=== PATIENT | female | born 1980 | race Caucasian/White ===

== ENCOUNTER 2019-12-17 11:16 | Emergency (ER) | payer OTHER, SELFPAY ==
[2019-12-17 11:38] VITALS: BP 129/94; PULSE 90; RESP 16; TEMP 36.9; O2SAT 99
--- NOTE | 2019-12-17 12:17 | ED.BACK ---
HPI - Back Pain/Injury General Chief Complaint: Back Pain/Injury Stated Complaint: Back pain Time Seen by Provider: 12/17/19 12:03 Source: patient and RN notes reviewed Mode of arrival: ambulatory Limitations: no limitations History of Present Illness HPI Narrative: Patient presents today complaining of low back pain x2 weeks. Denies injury or trauma. Denies numbness or tingling in the extremities. Denies any loss of bowel or bladder control. She currently rates her pain 4/10 and has been taking Advil without relief. States she has had back spasms in the past and was treated with steroids and muscle relaxers. MD elicited complaint: back pain Related Data Allergies Allergy/AdvReac Type Severity Reaction Status Date / Time No Known Allergies Allergy Uncoded 03/18/19 12:55 Review of Systems Review of Systems: Narrative: CONSTITUTIONAL: Denies body aches, fever, chills, or sweats. EYES: Denies visual changes, redness, or discharge. ENT: Denies rhinorrhea, congestion, sore throat, or otalgia. CARDIOVASCULAR: Denies chest pain, palpitations, or edema. RESPIRATORY: Denies cough or dyspnea. GASTROINTESTINAL: Denies abdominal pain, nausea, vomiting, or diarrhea. GENITOURINARY: Denies dysuria or hematuria. SKIN: Denies rash, itching, or wounds. MUSCULOSKELETAL: Denies joint pain, or myalgia. + Low back pain NEUROLOGIC: Denies headache, numbness, tingling, or weakness. PSYCH: Denies depression or anxiety. PMFSH Comments At time of signature, I have reviewed and agree with nursing past medical, surgical, social and family history unless otherwise noted. Please see nursing chart for further information. There is no relevant family history pertinent to the presenting complaint Exam Narrative: Exam Narrative: GENERAL: Well-appearing, over-nourished, and in no acute distress. HEAD: Normocephalic, atraumatic. EYES: EOMI. No redness or drainage. Conjunctivae normal. ENT: Mucous membranes pink and moist. NECK: Normal AROM. CHEST: No respiratory distress. MUSCULOSKELETAL: No bony tenderness of the spine. No step off. Bilateral lower lumbar paraspinal muscle tenderness. No SI joint tenderness. Distal sensation intact. Saddle sensation intact. Capillary refill normal. Pedal pulse normal. Foot push and pulls normal and strong. EXTREMITIES: Normal range of motion. No edema. SKIN: Warm, dry, no rash. Capillary refill normal. Normal skin turgor. NEURO: No focal deficits. Alert and oriented x3. Gait steady. PSYCH: Normal affect. No signs of depression or anxiety. Course Vital Signs Vital signs: Vital Signs Temperature 98.4 F 12/17/19 11:38 Pulse Rate 90 12/17/19 11:38 Respiratory Rate 16 12/17/19 11:38 Blood Pressure 129/94 H 12/17/19 11:38 Pulse Oximetry 99 12/17/19 11:38 Temperature 98.4 F 12/17/19 11:38 Pulse Rate 90 12/17/19 11:38 Respiratory Rate 16 12/17/19 11:38 Blood Pressure 129/94 H 12/17/19 11:38 Pulse Oximetry 99 12/17/19 11:38 Reviewed. Pt has been instructed to follow up with her PCP regarding her elevated blood pressure today. MDM - Back Pain/Injury Differential Diagnosis Differential diagnosis: Likely lumbar radiculopathy, sciatica and strain of lumbar region Critical Care Time Critical Care Time Critical Care Time: No Discharge Plan Discharge Clinical Impression: Strain of lumbar region Qualifiers: Encounter type: initial encounter Qualified Code(s): S39.012A - Strain of muscle, fascia and tendon of lower back, initial encounter Patient Disposition: Home, Self-Care Condition: Stable Instructions: Acute Low Back Pain (ED) Additional Instructions: Please take the Flexeril as prescribed. Do not drive within 8 hours of taking the Flexeril as it can make you drowsy. Continue the Advil at home for pain. Follow-up with a PCP in 1 week if symptoms are not improving. Go to the ER immediately with numbness or tingling in the legs of genitals, or loss of
== END 2019-12-17 12:25 | disposition home or self-care (01) ==
PROVIDERS: Emergency Provider Nurse Practitioner
DX: S39.012A Strain of muscle, fascia and tendon of lower back, initial encounter (principal); X58.XXXA Exposure to other specified factors, initial encounter
CPT/HCPCS: 99213; G0463

== ENCOUNTER 2020-10-10 12:16 | Emergency (ER) | payer OTHER, SELFPAY ==
--- NOTE | ~2020-10-10 | XR_ITS ---
XR ankle LT min 3V 10/10/2020 12:43 Indication: Left ankle pain Procedure: 4 views left ankle Comparison: No prior studies for comparison. Findings: There is mild diffuse soft tissue swelling. There is a linear ossific density lateral to th e talus inferior to the fibula which may represent an age-indeterminate avulsion fracture. Ankle mort ise intact. There is a degenerative calcaneal enthesophyte at the insertion of the Achilles. Impression: 1: Probable age-indeterminate avulsion fracture just lateral to the talus. Correlate for point tender ness. Reviewed, dictated and finalized at location A. Impression: 1: Probable age-indeterminate avulsion fracture just lateral to the talus. Sonido elate for point tenderness.
[2020-10-10 12:27] VITALS: BP 110/76; PULSE 86; RESP 16; TEMP 36.8; O2SAT 98
--- NOTE | 2020-10-10 13:00 | ED.LOWEXIN ---
HPI - Extremity Injury (Lower) General Chief Complaint: Extremity Injury, Lower Stated Complaint: left ankle pain Time Seen by Provider: 10/10/20 12:53 Source: patient and RN notes reviewed Mode of arrival: wheelchair Limitations: no limitations History of Present Illness HPI Narrative: Patient presents today complaining of left ankle injury. She stepped in a pothole while at [employer] just prior to arrival, rolling her left ankle. She has not been ambulatory since the injury. Denies numbness or tingling. Currently rates her pain 8/10. She has not tried any [id number] interventions for pain prior to arrival. complaint: ankle injury Related Data Home Medications Medication Instructions Recorded Confirmed No Home Medications 10/10/20 10/10/20 Allergies Allergy/AdvReac Type Severity Reaction Status Date / Time No Known Allergies Allergy Other Uncoded 10/10/20 12:46 Review of Systems Review of Systems: Narrative: CONSTITUTIONAL: Denies body aches, fever, chills, or sweats. EYES: Denies visual changes, redness, or discharge. ENT: Denies rhinorrhea, congestion, sore throat, or otalgia. CARDIOVASCULAR: Denies chest pain, palpitations, or edema. RESPIRATORY: Denies cough or dyspnea. GASTROINTESTINAL: Denies abdominal pain, nausea, vomiting, or diarrhea. GENITOURINARY: Denies dysuria or hematuria. SKIN: Denies rash, itching, or wounds. MUSCULOSKELETAL: Denies back pain, or myalgia.+ Left ankle injury NEUROLOGIC: Denies headache, numbness, tingling, or weakness. PSYCH: Denies depression or anxiety. PMFSH Comments At time of signature, I have reviewed and agree with nursing past medical, surgical, social and family history unless otherwise noted. Please see nursing chart for further information. There is no relevant family history pertinent to the presenting complaint Exam Narrative: Exam Narrative: GENERAL: Well-appearing, well-nourished, and in no acute distress. HEAD: Normocephalic, atraumatic. EYES: EOMI. No redness or drainage. Conjunctivae normal. ENT: Mucous membranes pink and moist. NECK: Normal AROM. CHEST: No respiratory distress. EXTREMITIES: Left ankle: Moderate edema to the lateral ankle with tenderness and ecchymosis. No tenderness about the foot. No tenderness to the medial malleolus. No tenderness to the talus. Range of motion limited due to pain. Full range of motion of the toes. Distal sensation intact in all toes. Pedal pulse normal. Capillary refill normal. SKIN: Warm, dry, no rash. Capillary refill normal. Normal skin turgor. NEURO: No focal deficits. Alert and oriented x3. Gait steady. PSYCH: Normal affect. No signs of depression or anxiety. Course Vital Signs Vital signs: Vital Signs Temperature 98.2 F 10/10/20 12:27 Pulse Rate 86 10/10/20 12:27 Respiratory Rate 16 10/10/20 12:27 Blood Pressure 110/76 10/10/20 12:27 Pulse Oximetry 98 10/10/20 12:27 Temperature 98.2 F 10/10/20 12:27 Pulse Rate 86 10/10/20 12:27 Respiratory Rate 16 10/10/20 12:27 Blood Pressure 110/76 10/10/20 12:27 Pulse Oximetry 98 10/10/20 12:27 Reviewed MDM - Extremity Injury (Lower) Differential Diagnosis Differential diagnosis: Likely ankle sprain and strain, ankle fracture and other (Contusion) Imaging Data Radiologist's impression: ITS Impressions Ankle X-Ray 10/10/20 12:45 Impression: 1: Probable age-indeterminate avulsion fracture just lateral to the talus. Correlate for point tenderness. Critical Care Time Critical Care Time Critical Care Time: No Discharge Plan Discharge Clinical Impression: Left ankle sprain Qualifiers: Encounter type: initial encounter Involved ligament of ankle: unspecified ligament Qualified Code(s): S93.402A - Sprain of unspecified ligament of left ankle, initial encounter Patient Disposition: Home, Self-Care Condition: Stable Instructions: Ankle Sprain (DC) Additional Instructions:
== END 2020-10-10 13:12 | disposition home or self-care (01) ==
PROVIDERS: Emergency Provider Nurse Practitioner
DX: S93.402A Sprain of unspecified ligament of left ankle, initial encounter (principal); X50.9XXA Other and unspecified overexertion or strenuous movements or postures, initial encounter
CPT/HCPCS: 73610; 99213; G0463

== ENCOUNTER 2020-10-30 08:13 | Emergency (ER) | payer OTHER, SELFPAY ==
[2020-10-30 08:40] VITALS: BP 129/80; PULSE 76; RESP 20; TEMP 36.6; O2SAT 100
--- NOTE | 2020-10-30 09:18 | ED.BACK ---
HPI - Back Pain/Injury General Chief Complaint: Back Pain/Injury Stated Complaint: back pain Time Seen by Provider: 10/30/20 09:03 Source: patient and RN notes reviewed Mode of arrival: ambulatory Limitations: no limitations History of Present Illness HPI Narrative: Patient presents today complaining of pain to her right back that radiates to the right buttock x3 days. States her pain started hurting as she was picking up a little laundry from her trunk of her car. She does report some intermittent numbness if she has been sitting for too long in the right lateral buttock area. She currently rates her pain 4/10 and has been taking Advil with temporary relief. Pain increased with movement or lying on her right side. Pain decreases when she lays on her left side. Denies numbness or tingling in the extremities. Denies any loss of bowel or bladder control. MD elicited complaint: back pain Related Data Allergies Allergy/AdvReac Type Severity Reaction Status Date / Time No Known Allergies Allergy Other Uncoded 10/10/20 12:46 Review of Systems Review of Systems: Narrative: CONSTITUTIONAL: Denies body aches, fever, chills, or sweats. EYES: Denies visual changes, redness, or discharge. ENT: Denies rhinorrhea, congestion, sore throat, or otalgia. CARDIOVASCULAR: Denies chest pain, palpitations, or edema. RESPIRATORY: Denies cough or dyspnea. GASTROINTESTINAL: Denies abdominal pain, nausea, vomiting, or diarrhea. GENITOURINARY: Denies dysuria or hematuria. SKIN: Denies rash, itching, or wounds. MUSCULOSKELETAL: Denies joint pain, or myalgia. + Right back pain NEUROLOGIC: Denies headache, numbness, tingling, or weakness. PSYCH: Denies depression or anxiety. PMFSH Comments At time of signature, I have reviewed and agree with nursing past medical, surgical, social and family history unless otherwise noted. Please see nursing chart for further information. There is no relevant family history pertinent to the presenting complaint Exam Narrative: Exam Narrative: GENERAL: Well-appearing, well-nourished, and in no acute distress. HEAD: Normocephalic, atraumatic. EYES: EOMI. No redness or drainage. Conjunctivae normal. ENT: Mucous membranes pink and moist. NECK: Normal AROM. CHEST: No respiratory distress. MUSCULOSKELETAL: No bony tenderness of the thoracic or lumbar spine. Patient has right lumbar paraspinal muscle tenderness extends to the right buttock/SI joint. Patient has sensation throughout the right buttock. Distal sensation intact. Saddle sensation intact and capillary refill normal. Posterior tibial pulses normal. Foot push and pulls equal and strong. EXTREMITIES: Normal range of motion. No edema. SKIN: Warm, dry, no rash. Capillary refill normal. Normal skin turgor. NEURO: No focal deficits. Alert and oriented x3. Gait steady. PSYCH: Normal affect. No signs of depression or anxiety. Course Vital Signs Vital signs: Vital Signs Temperature 97.9 F 10/30/20 08:40 Pulse Rate 76 10/30/20 08:40 Respiratory Rate 20 10/30/20 08:40 Blood Pressure 129/80 10/30/20 08:40 Pulse Oximetry 100 10/30/20 08:40 Temperature 97.9 F 10/30/20 08:40 Pulse Rate 76 10/30/20 08:40 Respiratory Rate 20 10/30/20 08:40 Blood Pressure 129/80 10/30/20 08:40 Pulse Oximetry 100 10/30/20 08:40 Reviewed. Pt has been instructed to follow up with her PCP regarding her elevated blood pressure today. MDM - Back Pain/Injury Differential Diagnosis Differential diagnosis: Likely lumbar radiculopathy, sciatica, strain of lumbar region and thoracic back pain Critical Care Time Critical Care Time Critical Care Time: No Discharge Plan Discharge Clinical Impression: Strain of lumbar region Qualifiers: Encounter type: initial encounter Qualified Code(s): S39.012A - Strain of muscle, fascia and tendon of lower back, initial encounter Sciatica Qualifiers: Laterality: right Qualified Code(s): M54.31 - Sciatic
== END 2020-10-30 09:24 | disposition home or self-care (01) ==
PROVIDERS: Emergency Provider Nurse Practitioner
DX: S39.012A Strain of muscle, fascia and tendon of lower back, initial encounter (principal); X50.0XXA Overexertion from strenuous movement or load, initial encounter; M54.31 Sciatica, right side
CPT/HCPCS: 99213; G0463

== ENCOUNTER 2021-02-06 15:09 | Emergency (ER) | payer OTHER, SELFPAY ==
[2021-02-06 15:17] VITALS: BP 140/80; PULSE 88; RESP 16; TEMP 36.4; O2SAT 99
--- NOTE | 2021-02-06 15:32 | ED.LOWEXIN ---
HPI - Extremity Injury (Lower) General Chief Complaint: Extremity Injury, Lower Stated Complaint: Left Knee Pain Time Seen by Provider: 02/06/21 15:22 Source: patient and RN notes reviewed Mode of arrival: ambulatory Limitations: no limitations History of Present Illness HPI Narrative: 40-year-old female presents concern for left knee pain. Reports earlier today she tripped on the stairs and twisted her left knee. She denies little pain at rest, reports pain with weightbearing. Reports distal anterior pain. She denies intervention. She denies distal decreased sensation, range of motion. MD complaint: knee injury Related Data Allergies Allergy/AdvReac Type Severity Reaction Status Date / Time No Known Allergies Allergy Other Uncoded 10/10/20 12:46 Review of Systems Review of Systems: CONSTITUTIONAL: Denies malaise, chills, sweats, or fever. SKIN: Denies abrasions, lacerations, redness, warmth MUSCULOSKELETAL: Reports left knee pain, denies bruising, swelling NEUROLOGIC: Denies numbness, weakness All systems reviewed & are unremarkable except as noted in HPI and below PMFSH Comments At time of signature, agree with nursing past medical, surgical, social and family history. There is no relevant family history pertinent to the presenting complaint Exam Narrative: GENERAL: Well-appearing, well-nourished, and in no acute distress. HEAD: Normocephalic, atraumatic. EYES: PERRLA, conjunctivae clear NECK: Supple. CHEST: Speaks in full sentences. No respiratory distress. HEART: Regular rate and rhythm. Normal and equal peripheral pulses. EXTREMITIES: Left knee has normal strength and sensation, normal range of motion. No edema or ecchymosis. 5/5 strength with knee flexion and extension. Normal sensation with sensitivity to light touch and pain. No point tenderness. No open wounds, no skin tenting, no devitalized tissue or atrophy, no trophic changes, no obvious deformity, alignment normal, nearby joints and structures intact. Distal pulses palpable and equal bilaterally, skin warm, dry, pink. Capillary refill less than 3 seconds. Lever test negative SKIN: Warm, dry, no rash. NEURO: Alert and oriented x3. PSYCH: Normal mood and affect Course Course Emergency Course: Patient is aware of diagnosis, understands and agrees to treatment plan. Anticipatory guidance given. Patient agrees to follow-up as directed and is aware of reasons to seek care at the emergency department. Portions of this record may have been created with voice recognition software Vital Signs Vital signs: Vital Signs Temperature 97.5 F L 02/06/21 15:17 Pulse Rate 88 02/06/21 15:17 Respiratory Rate 16 02/06/21 15:17 Blood Pressure 140/80 02/06/21 15:17 Pulse Oximetry 99 02/06/21 15:17 Temperature 97.5 F L 02/06/21 15:17 Pulse Rate 88 02/06/21 15:17 Respiratory Rate 16 02/06/21 15:17 Blood Pressure 140/80 02/06/21 15:17 Pulse Oximetry 99 02/06/21 15:17 Reviewed. Patient has been instructed to follow up with her primary care provider within the next week regarding her elevated blood pressure today. MDM - Extremity Injury (Lower) MDM Narrative Medical decision making narrative: Patients injury and pain is consistent with musculoskeletal etiology. No signs of neurological or vascular compromise on exam. Compartments and tissues are soft without signs of compartment syndrome. Pain is felt appropriate for further evaluation on an outpatient basis. Critical Care Time Critical Care Time Critical Care Time: No Discharge Plan Discharge Clinical Impression: Knee sprain Qualifiers: Encounter type: initial encounter Involved ligament of knee: unspecified ligament Laterality: left Qualified Code(s): S83.92XA - Sprain of unspecified site of left knee, initial encounter Patient Disposition: Home, Self-Care Condition: Stable Instructions: Knee Sprain (ED) Additional Instructions: Avoid activities that cause pain until the p
== END 2021-02-06 15:38 | disposition home or self-care (01) ==
PROVIDERS: Emergency Provider Nurse Practitioner
DX: S83.92XA Sprain of unspecified site of left knee, initial encounter (principal); X50.9XXA Other and unspecified overexertion or strenuous movements or postures, initial encounter
CPT/HCPCS: 99213; G0463

== ENCOUNTER 2021-04-06 17:36 | Emergency (ER) | payer OTHER, SELFPAY ==
[2021-04-06 17:45] VITALS: BP 100/83; PULSE 94; RESP 18; TEMP 36.5
--- NOTE | 2021-04-06 19:11 | ED.URI ---
HPI - URI/Sore Throat General Chief Complaint: Upper Respiratory Infection Stated Complaint: sore throat Source: patient and RN notes reviewed Limitations: no limitations History of Present Illness HPI Narrative: The overweight unvaccinated patient, a non-smoker/nondrinker, presents with half week history is cough and sore throat. No fever, earache, sputum changes; no loss of taste or smell, CP, vomiting/diarrhea, S OB. Symptoms are mild, associated mild fogginess/hoarseness. Related Data Allergies Allergy/AdvReac Type Severity Reaction Status Date / Time No Known Allergies Allergy Other Uncoded 04/06/21 18:06 Review of Systems Review of Systems: General/Constitutional: No weight loss,fever Eyes: N0: Redness,discharge Ears/Nose/Throat: No: Epistaxis,ear discharge Respiratory: Denies: Hemoptysis Gastrointestinal: No Vomiting, Bleeding-rectal Skin: No Lumps, eruption Neurologic: No Focal Weakness,Sz Hematologic: Denies: Petechiae/Purpura Psychiatric: No: Suicida ideationl All Other Systems: Reviewed and Negative PMFSH Comments At time of signature, agree with nursing past medical, surgical, social and family history. There is no relevant family history pertinent to the presenting complaint Exam Narrative: General Appearance: Well appearing, Well nourished EYE: PERRLA, Conjunctiva clear Ears: Auditory canal normal, TM normal Nose: Rhinorrhea, Mucousal erythema Mouth/Throat: MM moist, Uvula midline, Pharyngeal erythema Neck: Supple, No adenopathy Respiratory: No respiratory distress, Breath sounds equal, Clear to auscultation Cardiovascular: RRR, No JVD Musculoskeletal: Non tender, Normal strength Skin: Warm, Dry Neurological: A&O x3, CN II-XII intact Psychiatric: Normal mood, Normal affect Course Vital Signs Vital signs: Vital Signs Temperature 97.7 F 04/06/21 17:45 Pulse Rate 94 04/06/21 17:45 Respiratory Rate 18 04/06/21 17:45 Blood Pressure 100/83 04/06/21 17:45 Temperature 97.7 F 04/06/21 17:45 Pulse Rate 94 04/06/21 17:45 Respiratory Rate 18 04/06/21 17:45 Blood Pressure 100/83 04/06/21 17:45 MDM - URI/Sore Throat Lab Data Labs: Lab Results 04/06/21 Range/Units 18:05 POC SARS CoV-2 Ag Negative (Negative) Discharge Plan Discharge Clinical Impression: Cough Patient Disposition: Home, Self-Care Condition: Stable Instructions: Antibiotic Form, Acute Bronchitis (ED) Prescriptions: New benzonatate 100 mg capsule 100 mg PO BID PRN (Reason: cough) Qty: 20 RF: 2 azithromycin 250 mg tablet See Rx Instructions .ROUTE .COMPLEX Qty: 6 RF: 0 codeine-guaifenesin 10-100 mg/5 mL liquid 7.5 ml PO Q6H PRN (Reason: cough) Qty: 118 RF: 0 Follow-up/Referrals: UNKNOWN,DOCTOR [Primary Care Provider] - Stand Alone Forms: Work/School Release IP
== END 2021-04-06 19:25 | disposition home or self-care (01) ==
PROVIDERS: Emergency Provider Emergency Medicine
DX: R05.9 Cough, unspecified (principal); Z20.822 Contact with and (suspected) exposure to COVID-19
CPT/HCPCS: 87426; 99213; C9803; G0463

== ENCOUNTER 2022-02-08 08:10 | Emergency (ER) | payer OTHER, SELFPAY ==
--- NOTE | ~2022-02-08 | XR_ITS ---
EXAMINATION: XR finger 4th LT min 2V DATE: 02/08/2022 09:29 INDICATION: Left hand fourth digit injury. TECHNIQUE: 3 views of left hand fourth digit were obtained. COMPARISON: None. FINDINGS: Bone alignment is normal. No fracture. Joint spaces are normal. IMPRESSION: 1. No fracture. Reviewed, dictated and finalized at location A. IMPRESSION: 1. No fracture.
[2022-02-08 08:15] VITALS: BP 140/81; PULSE 83; RESP 12; TEMP 36.2; O2SAT 99
--- NOTE | 2022-02-08 08:30 | ED.UPPEXIN ---
HPI - Extremity Injury (Upper) General Chief Complaint: Extremity Injury, Upper Stated Complaint: left 4th finger injury Time Seen by Provider: 02/08/22 08:31 Source: patient Mode of arrival: ambulatory Limitations: no limitations History of Present Illness HPI narrative: 41-year-old female presented for complaint of left ring finger pain after injury yesterday around 1430. She states she slammed her car door on the finger. Endorses swelling and bruising decreased range of motion. She took Advil for pain. She denies numbness or tingling. Related Data Allergies Allergy/AdvReac Type Severity Reaction Status Date / Time No Known Allergies Allergy Other Uncoded 02/08/22 08:23 Review of Systems Review of Systems: CONSTITUTIONAL: Denies body aches, fever, chills CARDIOVASCULAR: Denies chest pain, palpitations, or edema. RESPIRATORY: Denies cough or dyspnea. SKIN: Denies rash, itching, or wounds. MUSCULOSKELETAL: Reports left ring finger pain NEUROLOGIC: Denies headache, numbness, tingling, or weakness. All systems reviewed & are unremarkable except as noted in HPI and below PMFSH Comments At time of signature, I have reviewed and agree with nursing past medical, surgical, social and family history unless otherwise noted. Please see nursing chart for further information. There is no relevant family history pertinent to the presenting complaint Exam Narrative: GENERAL: Well-appearing CHEST: Speaks in full sentences. No respiratory distress. HEART: Regular rate and rhythm. Normal and equal peripheral pulses. EXTREMITIES: Left 4th digit with mild bruising and swelling to proximal phalanx, tender to palpation, decreased ROM at MCP and PIP due to pain/swelling; normal strength and sensation, No open wounds, no obvious deformity; pulse palpable and equal bilaterally, skin warm, dry, pink. Capillary refill less than 3 seconds. SKIN: Warm, dry, no rash. NEURO: Alert and oriented x3. Course Course Emergency Course: Patient is aware of diagnosis, understands and agrees to treatment plan. Anticipatory guidance given. Patient agrees to follow-up as directed and is aware of reasons to seek care at the emergency department. Portions of this record may have been created with voice recognition software Level of Care: Express Care Visit Vital Signs Vital signs: Vital Signs Temperature 97.1 F L 02/08/22 08:15 Pulse Rate 83 02/08/22 08:15 Respiratory Rate 12 02/08/22 08:15 Blood Pressure 140/81 02/08/22 08:15 Pulse Oximetry 99 02/08/22 08:15 Temperature 97.1 F L 02/08/22 08:15 Pulse Rate 83 02/08/22 08:15 Respiratory Rate 12 02/08/22 08:15 Blood Pressure 140/81 02/08/22 08:15 Pulse Oximetry 99 02/08/22 08:15 Reviewed Procedures Orthopedic Splinting/Casting left 4th digit: Upper Extremity Immobilizer: aluminum form splint MDM - Extremity Injury (Upper) MDM Narrative Medical decision making narrative: Pt is advised we cannot complete imaging at this facility and is requesting [facility]. Report given to Tequila Uribe NP. Pt is instructed to go directly to the facility. Splint applied prior to transfer. Differential Diagnosis Differential diagnosis: Likely finger sprain, dislocation of finger and other (finger fracture) Imaging Data Radiologist's impression: Patient: Natalia Urias : 1980 MR#: [id number] Age/Sex: 41 / F Acct:[id number] Loc: [facility]? ? ADM Date: 02/08/22Attending Dr: Ordering Physician: Melva Rodas APRN Date of Service: 02/08/22 Procedure(s): XR finger 4th LT min 2V Accession Number(s): [id number] cc: Melva Rodas APRN; UNKNOWN,DOCTOR~ EXAMINATION: XR finger 4th LT min 2V DATE: 02/08/2022 09:29 INDICATION: Left hand fourth digit injury. TECHNIQUE: 3 views of left hand fourth digit were obtained. COMPARISON: None. FINDINGS: Bone alignment is normal. No fracture. Joint spaces are normal. IMPRESSION: 1. N
== END 2022-02-08 09:58 | disposition home or self-care (01) ==
PROVIDERS: Emergency Provider Nurse Practitioner Family
DX: S60.042A Contusion of left ring finger without damage to nail, initial encounter (principal); X58.XXXA Exposure to other specified factors, initial encounter
CPT/HCPCS: 29130; 73140; 99213; G0463

== ENCOUNTER 2022-02-25 19:16 | Emergency (ER) | payer OTHER, SELFPAY ==
[2022-02-25 19:26] VITALS: BP 130/81; PULSE 79; RESP 20; TEMP 36.8; O2SAT 100
--- NOTE | 2022-02-25 19:55 | ED.GENADULT ---
HPI - General Adult General Chief complaint: Extremity Problem,Nontraumatic Stated complaint: Left Arm Pain Time Seen by Provider: 02/25/22 19:30 Source: patient, RN notes reviewed and old records reviewed Mode of arrival: ambulatory Limitations: no limitations History of Present Illness HPI narrative: 41 year old female accompanied by mother presents to express care with complaints of squeezing pain in her left arm for the past 1 and half hours denies any injury to her arm or neck She reports that pain starts at wrist area and goes up to her elbow occasionally goes up into upper arm then it resolves and occurs intermittently. 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 Patient denies any chest pain, shortness of breath or any feelings of numbness in left arm. MD complaint: left arm pain intermittently Onset (ago): hour(s) (1.5 hours ago) Severity scale (1-10): 3 Treatments prior to arrival: none Related Data Allergies Allergy/AdvReac Type Severity Reaction Status Date / Time No Known Allergies Allergy Other Uncoded 02/08/22 08:23 Review of Systems Review of Systems: CONSTITUTIONAL: Denies fever, chills, or sweats. EYES: Denies visual changes, redness, or discharge. ENT: Denies rhinorrhea, congestion, sore throat, or otalgia. CARDIOVASCULAR: Denies chest pain, palpitations, or edema. RESPIRATORY: Denies cough or dyspnea. GASTROINTESTINAL: Denies abdominal pain, nausea, vomiting, or diarrhea. GENITOURINARY: Denies dysuria or hematuria. SKIN: Denies rash or itching. MUSCULOSKELETAL: Denies back pain, reports intermittent left arm pain described as squeezing from wrist up her arm. NEUROLOGIC: Denies headache, numbness, or weakness. PSYCHIATRIC: Denies anxiety or depression. All systems reviewed & are unremarkable except as noted in HPI and below [facility] Past Medical History Medical History (Updated 03/01/22 @ 11:05 by Lyssa Estrada NP) Exercise-induced asthma Social History Social History (Updated 03/01/22 @ 11:06 by Lyssa Estrada NP) Smoking status: Never smoker Alcohol intake: unknown Substance use type: does not use Living arrangements: with family Gender identity (if verbalized by the patient): Female Comments At time of signature, agree with nursing past medical, surgical, social and family history. There is no relevant family history pertinent to the presenting complaint Exam Narrative: GENERAL: Well-appearing, well-nourished, obese and in no acute distress. HEAD: Normocephalic, atraumatic. EYES: PERRLA and EOMI. ENT: Nares clear, no rhinorrhea or epistaxis. Mucous membranes moist. TM's normal with good light reflex, throat pink with no lesions or swelling NECK: Supple.no lymphadenopathy CHEST: Clear to auscultation. No respiratory distress.SAO2 100% on room air HEART: Regular rate and rhythm. No murmur heard. Normal peripheral pulses. ABDOMEN: Soft, nontender, nondistended, normal active bowel sounds. EXTREMITIES: Normal range of motion. No edema. No redness or swelling of left arm, reports intermittent squeezing pain in left arm up to upper arm starting 1.5 hours ago with no injury, full ROM of arm and shoulder and neck, denies any tingling or numbness, strong pulses left arm, equal handgrip bilaterally. SKIN: Warm, dry, no rash. NEURO: No focal deficits. Alert and oriented x3. Course Course Level of Care: Express Care Visit Vital Signs Vital signs: Vital Signs Temperature 36.8 C 02/25/22 19:26 Pulse Rate 79 02/25/22 19:26 Respiratory Rate 20 02/25/22 19:26 Blood Pressure 130/81 02/25/22 19:26 Pulse Oximetry 100 02/25/22 19:26 Oxygen Delivery Room Air 02/25/22 19:26 Temperature 36.8 C 02/25/22 19:26 Pulse Rate 79 02/25/22 19:26 Respiratory Rate 20 02/25/22 19:26 Blood Pressure 130/81 02/25/22 19:26 Pulse Oximetry 100 02/25/22 19:26 Oxygen Delivery Room Air 02/25/22 19:26 Medical Deci
--- NOTE | 2022-02-25 20:10 | ED.GENADULT ---
HPI - General Adult General Chief complaint: Extremity Problem,Nontraumatic Stated complaint: Left Arm Pain Source: patient, RN notes reviewed and old records reviewed Mode of arrival: ambulatory Limitations: no limitations Related Data Allergies Allergy/AdvReac Type Severity Reaction Status Date / Time No Known Allergies Allergy Other Uncoded 02/08/22 08:23 Course Vital Signs Vital signs: Vital Signs Temperature 36.8 C 02/25/22 19:26 Pulse Rate 79 02/25/22 19:26 Respiratory Rate 20 02/25/22 19:26 Blood Pressure 130/81 02/25/22 19:26 Pulse Oximetry 100 02/25/22 19:26 Oxygen Delivery Room Air 02/25/22 19:26 Temperature 36.8 C 02/25/22 19:26 Pulse Rate 79 02/25/22 19:26 Respiratory Rate 20 02/25/22 19:26 Blood Pressure 130/81 02/25/22 19:26 Pulse Oximetry 100 02/25/22 19:26 Oxygen Delivery Room Air 02/25/22 19:26 Medical Decision Making Vital Signs Vital Signs: Vital Signs Temperature 36.8 C 02/25/22 19:26 Pulse Rate 79 02/25/22 19:26 Respiratory Rate 20 02/25/22 19:26 Blood Pressure 130/81 02/25/22 19:26 Pulse Oximetry 100 02/25/22 19:26 Oxygen Delivery Room Air 02/25/22 19:26 Temperature 36.8 C 02/25/22 19:26 Pulse Rate 79 02/25/22 19:26 Respiratory Rate 20 02/25/22 19:26 Blood Pressure 130/81 02/25/22 19:26 Pulse Oximetry 100 02/25/22 19:26 Oxygen Delivery Room Air 02/25/22 19:26 Discharge Plan Discharge Clinical Impression: Left arm pain Patient Disposition: Home, Self-Care Condition: Stable Instructions: Arm Pain (ED) Additional Instructions: Tylenol for lesser pain Ibuprofen regularly for the next 2-3 days for the inflammation Medrol Dosepak take as prescribed Follow-up with PCP if further problems or concerns Ice to the area 20-30 minutes 4-6 times a day Elevate above heart If your symptoms persist, change or worsen significantly before you can contact your personal physician then please, without delay, go to the emergency department for further evaluation. Follow-up with PCP in 7-10 days or sooner if needed Follow up with PCP soon in regards to your blood pressure which is elevated above threshold for referral. Blood pressure above 120/80 may indicate pre-hypertension. Blood pressure 130/81 Prescriptions: New methylprednisolone [Medrol (Fausto)] 4 mg tablets,dose pack 4 mg PO DAILY Qty: 21 0RF Rx Instructions: take per package instructions Follow-up/Referrals: PHYSICIAN,LEGAL ACTIVITY ADJUDICATOR [Primary Care Provider] - Time of Disposition: 20:11
== END 2022-02-25 20:18 | disposition home or self-care (01) ==
PROVIDERS: Emergency Provider Registered Nurse
DX: M79.602 Pain in left arm (principal)
CPT/HCPCS: 99213; G0463

== ENCOUNTER 2022-03-02 14:22 | Emergency (ER) | payer OTHER, SELFPAY ==
--- NOTE | ~2022-03-02 | XR_ITS ---
EXAMINATION: XR tibia fibula RT 2V INDICATION: Right leg pain TECHNIQUE: Two views of the right tibia and fibula are obtained. COMPARISON: None available FINDINGS: Bone alignment is normal. There is no fracture. There is mild anterior soft tissue swelling of the leg. IMPRESSION: 1. No acute osseous abnormality. Reviewed, dictated and finalized at location A.
[2022-03-02 14:31] VITALS: BP 149/74; PULSE 101; RESP 16; TEMP 36.4; O2SAT 99
--- NOTE | 2022-03-02 14:33 | ED.LOWEXIN ---
HPI - Extremity Injury (Lower) General Chief Complaint: Extremity Injury, Lower Stated Complaint: right knee pain Time Seen by Provider: 03/02/22 14:32 Source: patient Mode of arrival: ambulatory Limitations: no limitations History of Present Illness HPI Narrative: Ms. Urias is a 41-year-old female patient with complaints of right upper leg pain. She reports that she tripped over a root in the backyard and landed on the right leg. She has bruising to this area and she reports she is having pain with walking. Related Data Home Medications Medication Instructions Recorded Confirmed No Home Medications 03/02/22 03/02/22 Allergies Allergy/AdvReac Type Severity Reaction Status Date / Time No Known Allergies Allergy Other Uncoded 03/02/22 14:31 Review of Systems Review of Systems: Pertinent positives per HPI. Patient denies any fever, chills, rash, headache, visual changes, dizziness, cough, runny nose, sore throat, shortness of breath, chest pain, palpitations, nausea, vomiting, diarrhea, constipation, abdominal pain, or any urinary issues. [facility] Past Medical History Medical History (Updated 03/02/22 @ 14:40 by Luis Askew APRN) Exercise-induced asthma Social History Social History (Updated 03/01/22 @ 11:06 by Lyssa Estrada NP) Smoking status: Never smoker Alcohol intake: unknown Substance use type: does not use Gender identity (if verbalized by the patient): Female Comments At the time of my signature, I reviewed and agree with the nursing past medical, surgical, social, and family history. There is no relevant family history pertinent to the patient complaint. Exam Narrative: General: Well-developed, well nourished, in no apparent distress Head: Normocephalic, atraumatic. Cardio: Regular rate and rhythm, s1 and s2 normal, no murmur appreciated. Resp: Clear to auscultation bilaterally, no rhonchi, rales, wheezing or rubs. Musculoskeletal: No deformity, bruising and swelling noted to the anterior proximal right leg, tender to palpation over the bruised area,grossly normal range of motion, muscle strength strong and equal, peripheral pulse strong, no edema, no cyanosis, sitting in wheelchair Course Course Emergency Course: Portions of this record may have been created with voice recognition software. Level of Care: Express Care Visit Vital Signs Vital signs: Vital Signs Temperature 36.4 C L 03/02/22 14:31 Pulse Rate 101 H 03/02/22 14:31 Respiratory Rate 16 03/02/22 14:31 Blood Pressure 149/74 H 03/02/22 14:31 Pulse Oximetry 99 03/02/22 14:31 Oxygen Delivery Room Air 03/02/22 14:31 Temperature 36.4 C L 03/02/22 14:31 Pulse Rate 101 H 03/02/22 14:31 Respiratory Rate 16 03/02/22 14:31 Blood Pressure 149/74 H 03/02/22 14:31 Pulse Oximetry 99 03/02/22 14:31 Oxygen Delivery Room Air 03/02/22 14:31 Vital signs reviewed MDM - Extremity Injury (Lower) MDM Narrative Medical decision making narrative: At the time of visit patient is resting comfortably in the exam room. X-ray was performed and shows no fracture of the tib-fib. I suspect the patient has a tib-fib fusion of the right leg. Supportive measures were discussed with the patient and she voiced understanding of discharge instructions and agrees to treatment plan. Differential Diagnosis Differential diagnosis: Likely other (Tib-fib fracture, tib-fib contusion, soft tissue injury) Imaging Data Radiologist's impression: [facility] [address] [place] [address] XRay Report Signed Patient: Ntaalia Urias : 1980 MR#: [id number] Age/Sex: 41 / F Acct:[id number] Loc: [facility]? ? ADM Date: 03/02/22Attending Dr: Ordering Physician: Luis Askew APRN Date of Service: 03/02/22 Procedure(s): XR tibia fibula RT 2V Accession Number(s): [id number] cc: Luis Askew APRN; [facility]
[2022-03-02 14:37] VITALS: BP 149/74; PULSE 101; RESP 16; TEMP 36.4; O2SAT 99
== END 2022-03-02 15:03 | disposition home or self-care (01) ==
PROVIDERS: Emergency Provider Nurse Practitioner Family
DX: S80.11XA Contusion of right lower leg, initial encounter (principal); W01.0XXA Fall on same level from slipping, tripping and stumbling without subsequent striking against object, initial encounter
CPT/HCPCS: 73590; 99213; G0463

== ENCOUNTER 2022-04-18 20:24 | Emergency (ER) | payer OTHER, SELFPAY ==
[2022-04-18 20:24] VITALS: BP 137/90; PULSE 94; RESP 20; TEMP 36.8; O2SAT 98
--- NOTE | 2022-04-18 22:18 | ED.BACK ---
HPI - Back Pain/Injury General Chief Complaint: Back Pain/Injury Stated Complaint: back spasms Time Seen by Provider: 04/18/22 22:03 History of Present Illness HPI Narrative: This is a 41F with history of back spasm presenting to the ED complaining of left low back spasm and fall. She states she was seated on the toilet when she felt a spasm in the left low back, she attempted to stand but fell due to pain. She denies head injury or loss of consciousness. She states her pain is 5/10, sore and does not radiate. She denies loss of bowel/bladder control, or leg weakness. Related Data Allergies Allergy/AdvReac Type Severity Reaction Status Date / Time No Known Allergies Allergy Other Uncoded 03/02/22 14:31 Review of Systems Review of Systems: CONSTITUTIONAL: Denies fever, chills, or sweats. EYES: Denies visual changes, redness, or discharge. ENT: Denies rhinorrhea, congestion, sore throat, or otalgia. CARDIOVASCULAR: Denies chest pain, palpitations, or edema. RESPIRATORY: Denies cough or dyspnea. GASTROINTESTINAL: Denies abdominal pain, nausea, vomiting, or diarrhea. GENITOURINARY: Denies dysuria or hematuria. SKIN: Denies rash or itching. MUSCULOSKELETAL: Back pain denies joint pain, or myalgia. NEUROLOGIC: Denies headache, numbness, dizziness, or weakness. PSYCHIATRIC: Denies anxiety or depression. [facility] Past Medical History Medical History Exercise-induced asthma Social History Social History Smoking status: Never smoker Alcohol intake: unknown Substance use type: does not use Gender identity (if verbalized by the patient): Female Exam Narrative: GENERAL: Well-appearing, well-nourished, and in no acute distress. HEAD: Normocephalic, atraumatic. EYES: PERRLA and EOMI. ENT: Nares clear, no rhinorrhea or epistaxis. Mucous membranes moist. Oropharynx without tonsillar hypertrophy exudate or other lesions. Bilateral TMs pearly ledezma nonbulging NECK: Supple. No adenopathy or masses. No carotid bruits or JVD CHEST: Clear to auscultation. No respiratory distress. No wheezes rales or rhonchi HEART: Regular rate and rhythm. No murmur heard. Normal peripheral pulses. ABDOMEN: Soft, nontender, nondistended, normal active bowel sounds. BACK: Left lumbar paraspinal tenderness to palpation with some spasm EXTREMITIES: Normal range of motion. No edema. SKIN: Warm, dry, no rash. NEURO: No focal deficits. Alert and oriented x3. PSYCH: Normal mood and affect. Course Course Emergency Course: 22:35 - Exam consistent with paraspinal muscle spasm without neurodeficit. I do not suspect fracture or cauda equina. Will discharge with pain medications and primary care follow-up. Discussed return emergency precautions including signs/symptoms of cauda equina. Patient voiced understanding and is comfortable with the plan. All questions answered to her satisfaction. Vital Signs Vital signs: Vital Signs Temperature 98.3 F 04/18/22 20:24 Pulse Rate 94 04/18/22 20:24 Respiratory Rate 20 04/18/22 20:24 Blood Pressure 137/90 04/18/22 20:24 Pulse Oximetry 98 04/18/22 20:24 Oxygen Delivery Room Air 04/18/22 20:24 Temperature 98.3 F 04/18/22 20:24 Pulse Rate 94 04/18/22 20:24 Respiratory Rate 20 04/18/22 20:24 Blood Pressure 137/90 04/18/22 20:24 Pulse Oximetry 98 04/18/22 20:24 Oxygen Delivery Room Air 04/18/22 20:24 MDM - Back Pain/Injury MDM Narrative Medical decision making narrative: Plan: Pain control Differential Diagnosis Differential diagnosis: Likely strain of lumbar region and other (Paraspinal spasm, other) Discharge Plan Discharge Clinical Impression: Lumbar paraspinal muscle spasm, Low back pain Patient Disposition: Home, Self-Care Condition: Stable Instructions: Antibiotic Form, Back Pain (ED), Lower Back Exercises (ED) Additional Instruction
[2022-04-18] MEDS: CYCLOBENZAPRINE HCL 10 MG TABLET PO (22:45)
[2022-04-18] MEDS: ACETAMINOPHEN 500 MG TABLET 1000 MG PO (22:45)
== END 2022-04-18 23:08 | disposition home or self-care (01) ==
PROVIDERS: Emergency Provider Preventive Medicine Aerospace Medicine
DX: M62.830 Muscle spasm of back (principal); M54.50 Low back pain, unspecified; J45.990 Exercise induced bronchospasm
CPT/HCPCS: 99283; A9270

== ENCOUNTER 2022-05-10 15:56 | Emergency (ER) | payer OTHER, SELFPAY ==
--- NOTE | ~2022-05-10 | XR_ITS ---
XR lumbar spine min 4V 05/10/2022 17:13 Indication: Back pain Procedure: 5 views lumbar spine Comparison: No prior studies for comparison. Findings: There is disc narrowing at L4-5 and L5-S1. No acute fracture or traumatic malalignment. No evidence for spondylolisthesis. There is facet hypertrophy at L5-S1. Pedicles intact. Sacral foramen are symmetric. Impression: 1: Mild-moderate lower lumbar spondylosis. Reviewed, dictated and finalized at location A. LITIES MANAGER Impression: 1: Mild-moderate lower lumbar spondylosis.
[2022-05-10 16:08] VITALS: BP 135/76; PULSE 85; RESP 16; TEMP 36.6; O2SAT 99
--- NOTE | 2022-05-10 16:55 | ED.BACK ---
HPI - Back Pain/Injury General Chief Complaint: Back Pain/Injury Stated Complaint: Back Pain Source: patient Mode of arrival: ambulatory Limitations: no limitations History of Present Illness HPI Narrative: Patient presents for evaluation of low back spasms since yesterday. She indicates she was seen at [facility] in the emergency department on 04/18/2022 for back spasms. She indicates she contacted EMS due to the severity of her symptoms. No imaging was performed but she was discharged with Tylenol, Lidoderm, Flexeril. Documentation from the emergency department states that she did experience a fall prior to her ER presentation. She states her symptoms improved with the medications prescribed by the emergency department provider. Yesterday she felt twinges of pain in the low back, rated 8 of 10 in severity. Pain radiates into the left buttock. No saddle anesthesia. No bladder or bowel incontinence. She is wondering if she can get a refill on a muscle relaxer. She denies any new injury which could have exacerbated her pain. Related Data Allergies Allergy/AdvReac Type Severity Reaction Status Date / Time No Known Allergies Allergy Other Uncoded 05/10/22 16:12 Review of Systems Review of Systems: CONSTITUTIONAL: Denies fever, chills, or sweats. EYES: Denies visual changes, redness, or discharge. ENT: Denies rhinorrhea, congestion, sore throat, or otalgia. CARDIOVASCULAR: Denies chest pain, palpitations, or edema. RESPIRATORY: Denies cough or dyspnea. GASTROINTESTINAL: Denies abdominal pain, nausea, vomiting, or diarrhea. GENITOURINARY: Denies dysuria or hematuria. SKIN: Denies rash or itching. MUSCULOSKELETAL: Reports low back pain with radiation to the left buttock NEUROLOGIC: Denies headache, numbness, dizziness, or weakness. PSYCHIATRIC: Denies anxiety or depression. [facility] Past Medical History Medical History (Updated 05/10/22 @ 17:38 by Gage Gonzáles, MERRILL, MATEO) Exercise-induced asthma Surgical History Surgical History No pertinent past surgical history Family History Family History Mother Family history non-contributory Social History Social History Smoking status: Never smoker Alcohol intake: unknown Substance use type: does not use Gender identity (if verbalized by the patient): Female Spiritual care concerns: No Exam Narrative: GENERAL: Well-appearing, well-nourished, and in no acute distress. HEAD: Normocephalic, atraumatic. EYES: PERRLA and EOMI. ENT: Nares clear, no rhinorrhea or epistaxis. Mucous membranes moist. Oropharynx without tonsillar hypertrophy exudate or other lesions. Bilateral TMs pearly ledezma nonbulging NECK: Supple. No adenopathy or masses. No carotid bruits or JVD CHEST: Clear to auscultation. No respiratory distress. No wheezes rales or rhonchi HEART: Regular rate and rhythm. No murmur heard. Normal peripheral pulses. ABDOMEN: Soft, nontender, nondistended, normal active bowel sounds. BACK: There is tenderness in midline and paraspinous muscles bilaterally of lumbar spine. EXTREMITIES: Normal range of motion. No edema. SKIN: Warm, dry, no rash. NEURO: No focal deficits. Alert and oriented x3. PSYCH: Normal mood and affect. Course Course Emergency Course: this is a 42-year-old female that presented for evaluation of low back pain. X-ray showed spondylosis. NSAIDs may help with pain. Will prescribe cyclobenzaprine to help with muscle spasms. Warm moist heat should help. Follow up with primary provider this coming week. She has no red flag symptoms. Go to ER for intractable pain or red flag symptoms. Pt in agreement with plan of care. Level of Care: Express Care Visit Vital Signs Vital signs: Vital Signs Temperature 36.6 C 05/10/22 16:08 Pulse Rate 85 05/10/22 1
== END 2022-05-10 17:42 | disposition home or self-care (01) ==
PROVIDERS: Emergency Provider Nurse Practitioner
DX: M47.816 Spondylosis without myelopathy or radiculopathy, lumbar region (principal); M62.830 Muscle spasm of back; J45.990 Exercise induced bronchospasm
CPT/HCPCS: 72110; 99213; G0463

== ENCOUNTER 2022-12-08 17:22 | Emergency (ER) | payer OTHER, SELFPAY ==
[2022-12-08 17:29] VITALS: BP 136/77; PULSE 77; RESP 16; TEMP 36.6; O2SAT 100
--- NOTE | 2022-12-08 17:38 | ED.BACK ---
HPI - Back Pain/Injury General Chief Complaint: Back Pain/Injury Stated Complaint: Back Pain Time Seen by Provider: 12/08/22 17:39 Source: patient Mode of arrival: ambulatory Limitations: no limitations History of Present Illness HPI Narrative: 42-year-old female presents with complaint of left-sided low back pain with radiation to left buttock and left lower leg. Patient reports history of sciatica and degenerative disc disease. Patient states today she was bending over to feed her dog and felt a shooting pain into the left side of her back. She said she then stood up and realized that she had aggravated her sciatica and pain was radiating into her left leg. She took a dose of ibuprofen with no improvement of her pain. Ambulatory to [facility] with steady gait. No weakness to lower extremities. Denies loss of bowel or bladder. All systems reviewed and negative except as noted above. Related Data Allergies Allergy/AdvReac Type Severity Reaction Status Date / Time No Known Allergies Allergy Other Uncoded 12/08/22 17:33 Review of Systems Review of Systems: CONSTITUTIONAL: Denies fever, chills, or sweats. EYES: Denies visual changes, redness, or discharge. ENT: Denies rhinorrhea, congestion, sore throat, or otalgia. CARDIOVASCULAR: Denies chest pain, palpitations, or edema. RESPIRATORY: Denies cough or dyspnea. GASTROINTESTINAL: Denies abdominal pain, nausea, vomiting, or diarrhea. GENITOURINARY: Denies dysuria or hematuria. SKIN: Denies rash or itching. MUSCULOSKELETAL: Reports left-sided low back pain with radiation to left buttock and left lower extremity. NEUROLOGIC: Denies headache, numbness, or weakness. PSYCHIATRIC: Denies anxiety or depression. All other systems reviewed are negative, except as documented in HPI. [facility] Past Medical History Medical History (Updated 12/09/22 @ 00:00 by Juan Carlos Gaines) Exercise-induced asthma Surgical History Surgical History No pertinent past surgical history Family History Family History Mother Family history non-contributory Social History Social History Smoking status: Never smoker Alcohol intake: unknown Substance use type: does not use Living arrangements: with family Gender identity (if verbalized by the patient): Female Spiritual care concerns: No Comments At time of signature, agree with nursing past medical, surgical, social and family history. There is no relevant family history pertinent to the presenting complaint. Exam Narrative: GENERAL: This is a well-nourished, well-developed patient, in no apparent distress. HEAD: normocephalic, atraumatic. EYES: PERRL. Sclera clear/white. Vision is grossly intact. EARS: External ears normal NOSE: External nose normal NECK: Neck supple, non-tender without lymphadenopathy, masses or thyromegaly. CARDIOVASCULAR: Regular rate and rhythm without murmurs, gallops, or rubs. RESPIRATORY: Clear to auscultation. Breath sounds equal bilaterally. No wheezes, rales, or rhonchi. SKIN: warm, Dry, intact with no suspicious lesions or rash, good texture and turgor. NEURO: awake, alert, and oriented to person, place and time. There were no obvious focal neurologic abnormalities. EXTREMITIES: No joint tenderness, effusion, or edema noted. BACK: No midline tenderness. Tenderness over left SI. Positive left straight leg raise. Lower extremity strength 5/5 bilaterally. Course Course Level of Care: Express Care Visit Vital Signs Vital signs: Vital Signs Temperature 36.6 C 12/08/22 17:29 Pulse Rate 77 12/08/22 17:29 Respiratory Rate 16 12/08/22 17:29 Blood Pressure 136/77 12/08/22 17:29 Pulse Oximetry 100 12/08/22 17:29 Oxygen Delivery Room Air 12/08/22 17:29 Temperature 36.6 C 12/08/22 1
== END 2022-12-08 17:50 | disposition home or self-care (01) ==
PROVIDERS: Emergency Provider Nurse Practitioner Family; PCP Physician Assistant
DX: M54.32 Sciatica, left side (principal); J45.990 Exercise induced bronchospasm
CPT/HCPCS: 99213; G0463

== ENCOUNTER 2023-02-22 16:04 | Emergency (ER) | payer OTHER, SELFPAY ==
[2023-02-22 16:09] VITALS: BP 124/81; PULSE 84; RESP 18; TEMP 36.6; O2SAT 100
--- NOTE | 2023-02-22 16:09 | ECG_ITS ---
Measurements Intervals Pitman Rate: 88 P: 40 DC: 165 QRS: 39 QRSD: 81 T: 30 QT: 351 QTc: 425 Interpretive Statements SINUS RHYTHM BASELINE ARTIFACT- III NORMAL ECG NO PREVIOUS ECG AVAILABLE FOR COMPARISON Electronically Signed On 02-23-2023 6:33:59 CDT by Willi Lang D.O.
--- NOTE | 2023-02-22 16:30 | ED.CHESTPAIN ---
HPI - Chest Pain General Chief Complaint: Chest Pain Stated Complaint: Chest Pain Time Seen by Provider: 02/22/23 16:31 Source: patient Mode of arrival: ambulatory Limitations: no limitations History of Present Illness HPI narrative: 42-year-old female presenting for complaint of intermittent midsternal chest pain for 5 days. Pain is described as dull and pressure. Denies associated shortness of breath, nausea, vomiting, dizziness, sweating, or radiating pain. She endorses a history of GERD and has been having reflux. She took Tylenol for the pain. Related Data Allergies Allergy/AdvReac Type Severity Reaction Status Date / Time No Known Allergies Allergy Other Uncoded 02/22/23 16:17 Review of Systems Review of Systems: CONSTITUTIONAL: Denies body aches, fever, chills, or sweats. EYES: Denies visual changes, redness, or discharge. ENT: Denies rhinorrhea, congestion, sore throat, or otalgia. CARDIOVASCULAR: Reports midsternal chest pain, Denies palpitations, or edema. RESPIRATORY: Denies cough or dyspnea. GASTROINTESTINAL: reports acid reflux Denies abdominal pain, nausea, vomiting, or diarrhea. GENITOURINARY: Denies dysuria or hematuria. SKIN: Denies rash, itching, or wounds. MUSCULOSKELETAL: Denies back pain, joint pain, or myalgia. NEUROLOGIC: Denies headache, numbness, tingling, or weakness. All systems reviewed & are unremarkable except as noted in HPI and below PMFSH Past Medical History Medical History Exercise-induced asthma Surgical History Surgical History No pertinent past surgical history Family History Family History Mother Family history non-contributory Social History Social History Smoking status: Never smoker Alcohol intake: unknown Substance use type: does not use Living arrangements: with family Gender identity (if verbalized by the patient): Female Spiritual care concerns: No Comments At time of signature, I have reviewed and agree with nursing past medical, surgical, social and family history unless otherwise noted. Please see nursing chart for further information. There is no relevant family history pertinent to the presenting complaint Exam Narrative: GENERAL: Well-appearing, and in no acute distress. HEAD: Normocephalic, atraumatic. EYES: EOMI. No redness or drainage. Conjunctivae normal. ENT: Mucous membranes pink and moist. NECK: Normal AROM. Supple. No lymphadenopathy. CHEST: No respiratory distress. Clear to auscultation. Mid sternal tenderness with palpation. HEART: Regular rate and rhythm. No murmur appreciated. Normal peripheral pulses. ABDOMEN: Soft, nondistended, normal active bowel sounds. Mild epigastric tenderness with palpation. MUSCULOSKELETAL: No bony tenderness. EXTREMITIES: Normal range of motion to BUEs. No edema. SKIN: Warm, dry, no rash. Capillary refill normal. Normal skin turgor. NEURO: No focal deficits. Alert and oriented x3. Gait steady. PSYCH: Normal affect. Course Course Emergency Course: Patient is aware of diagnosis, understands and agrees to treatment plan. Anticipatory guidance given. Patient agrees to follow-up as directed and is aware of reasons to seek care at the emergency department. Portions of this record may have been created with voice recognition software Level of Care: Express Care Visit Vital Signs Vital signs: Vital Signs Temperature 97.8 F 02/22/23 16:09 Pulse Rate 84 02/22/23 16:09 Respiratory Rate 18 02/22/23 16:09 Blood Pressure 124/81 02/22/23 16:09 Pulse Oximetry 100 02/22/23 16:09 Oxygen Delivery Room Air 02/22/23 16:09 Temperature 97.8 F 02/22/23 16:09 Pulse Rate 84 02/22/23 16:09 Respiratory Rate 18 02/22/23 16:09 Blood Pressure 124/
== END 2023-02-22 16:45 | disposition home or self-care (01) ==
PROVIDERS: Emergency Provider Nurse Practitioner Family; PCP Physician Assistant
DX: R07.89 Other chest pain (principal); R12 Heartburn; J45.990 Exercise induced bronchospasm
CPT/HCPCS: 93005; 99213; G0463

== ENCOUNTER 2023-07-19 12:58 | Emergency (ER) | payer OTHER, SELFPAY ==
[2023-07-19 13:11] VITALS: BP 140/83; PULSE 77; RESP 16; TEMP 36.8; O2SAT 99
--- NOTE | 2023-07-19 13:28 | ED.EAR ---
HPI - Ear Problem General Chief complaint: Ear Stated complaint: right side of face hurts, right ear pain Time Seen by Provider: 07/19/23 13:28 Source: patient Mode of arrival: ambulatory Limitations: no limitations History of Present Illness HPI Narrative: 42 yo F presents with c/o pain to R ear for 2 days. afebrile. all systems reviewed and negative except as noted above. Related Data Allergies Allergy/AdvReac Type Severity Reaction Status Date / Time No Known Allergies Allergy Other Uncoded 07/19/23 13:07 Review of Systems Review of Systems: CONSTITUTIONAL: Denies fever, chills, or sweats. EYES: Denies visual changes, redness, or discharge. ENT: Denies rhinorrhea, congestion, sore throat . Reports right ear pain. CARDIOVASCULAR: Denies chest pain, palpitations, or edema. RESPIRATORY: Denies cough or dyspnea. GASTROINTESTINAL: Denies abdominal pain, nausea, vomiting, or diarrhea. GENITOURINARY: Denies dysuria or hematuria. SKIN: Denies rash or itching. MUSCULOSKELETAL: Denies back pain, joint pain, or myalgia. NEUROLOGIC: Denies headache, numbness, or weakness. PSYCHIATRIC: Denies anxiety or depression. All other systems reviewed are negative, except as documented in HPI. [facility] Past Medical History Medical History Exercise-induced asthma Surgical History Surgical History No pertinent past surgical history Family History Family History Mother Family history non-contributory Social History Social History Smoking status: Never smoker Alcohol intake: unknown Substance use type: does not use Living arrangements: with family Gender identity (if verbalized by the patient): Female Spiritual care concerns: No Comments At time of signature, agree with nursing past medical, surgical, social and family history. There is no relevant family history pertinent to the presenting complaint. Exam Narrative: GENERAL: This is a well-nourished, well-developed patient, in no apparent distress. HEAD: normocephalic, atraumatic. EYES: PERRL. Sclera clear/white. Vision is grossly intact. EARS: External ears normal, auditory canals clear and without drainage, fluid bilateral TMs, right TM opaque, Dull light reflex. No perforation bilaterally. NOSE: External nose normal with no obvious nasal discharge, nares without redness, no rhinorrhea. THROAT: Mucous membranes moist, Postnasal drainage without erythema NECK: Neck supple, non-tender without lymphadenopathy, masses or thyromegaly. CARDIOVASCULAR: Regular rate and rhythm without murmurs, gallops, or rubs. RESPIRATORY: Clear to auscultation. Breath sounds equal bilaterally. No wheezes, rales, or rhonchi. SKIN: warm, Dry, intact with no suspicious lesions or rash, good texture and turgor. NEURO: awake, alert, and oriented to person, place and time. Course Course Level of Care: Express Care Visit Vital Signs Vital signs: Vital Signs Temperature 36.8 C 07/19/23 13:11 Pulse Rate 77 07/19/23 13:11 Respiratory Rate 16 07/19/23 13:11 Blood Pressure 140/83 07/19/23 13:11 Pulse Oximetry 99 07/19/23 13:11 Oxygen Delivery Room Air 07/19/23 13:11 Temperature 36.8 C 07/19/23 13:11 Pulse Rate 77 07/19/23 13:11 Respiratory Rate 16 07/19/23 13:11 Blood Pressure 140/83 07/19/23 13:11 Pulse Oximetry 99 07/19/23 13:11 Oxygen Delivery Room Air 07/19/23 13:11 reviewed Medical Decision Making MDM Narrative Medical decision making narrative: Patient is aware of diagnosis, understands and agrees to treatment plan. Anticipatory guidance given. Patient agrees to follow-up as directed and is aware of reasons to seek care at the emergency department. Portions of this record may have been created
== END 2023-07-19 13:41 | disposition home or self-care (01) ==
PROVIDERS: Emergency Provider Nurse Practitioner Family; PCP Physician Assistant
DX: H65.03 Acute serous otitis media, bilateral (principal); J45.990 Exercise induced bronchospasm
CPT/HCPCS: 99213; G0463

== ENCOUNTER 2023-09-05 09:37 | Emergency (ER) | payer OTHER, SELFPAY ==
[2023-09-05 09:48] VITALS: BP 119/87; PULSE 83; RESP 16; TEMP 36.3; O2SAT 98
--- NOTE | 2023-09-05 09:54 | ED.GENADULT ---
HPI - General Adult General Chief complaint: Chest Pain Stated complaint: dull pain left arm, chest pain ,heartburn Time Seen by Provider: 09/05/23 09:54 Source: patient, RN notes reviewed and old records reviewed Mode of arrival: ambulatory Limitations: no limitations History of Present Illness HPI narrative: 42-year-old female presents to the [facility] with complaints of sternal chest pain radiating down her left arm, states that her left arm feels full, swollen. Patient also reports the pain is radiating into her abdomen. Patient reports associated shortness of breath. Patient denies any history of cardiac issues or any significant medical history Reports mom had a 1st heart attack at age 55 Onset (ago): day(s) (1) Treatments prior to arrival: aspirin (Reports taking 2 full aspirin this morning) Related Data Home Medications Medication Instructions Recorded Confirmed No Home Medications 09/05/23 09/05/23 Allergies Allergy/AdvReac Type Severity Reaction Status Date / Time No Known Allergies Allergy Other Uncoded 09/05/23 09:39 Review of Systems Review of Systems: All systems reviewed & are unremarkable except as noted in HPI and below Constitutional: Constitutional: Reports no additional constitutional complaints Eyes: Eyes: Reports no additional eye complaints ENT: Reports system reviewed and no additional complaints, except as documented Cardiovascular: Cardiovascular: Reports as per HPI, Reports chest pain and Reports dyspnea Respiratory: Respiratory: Reports as per HPI, Denies chest congestion, Denies cough and Reports dyspnea Gastrointestinal: Gastrointestinal: Reports no additional gastrointestinal complaints, Denies abdominal pain, Denies nausea and Denies vomiting Musculoskeletal: Musculoskeletal: Reports as per HPI and Reports radiating pain into limb (Left arm, feels swollen) Integumentary/Breasts: Skin/Breast: Reports system reviewed and no additional complaints, except as docu Neurologic: Reports system reviewed and no additional complaints, except as documented Psychiatric: Psychiatric: Reports no additional psychiatric complaints Allergic/Immunologic: Allergic/Immunologic: Reports no additional allergic/immunologic complaints PMFSH Past Medical History Medical History Exercise-induced asthma Surgical History Surgical History No pertinent past surgical history Family History Family History Mother Family history non-contributory Social History Social History Smoking status: Never smoker Alcohol intake: unknown Substance use type: does not use Living arrangements: with family Gender identity (if verbalized by the patient): Female Spiritual care concerns: No Comments At the time of my signature, I reviewed and agree with the nursing past medical, surgical, social, and family history. There is no relevant family history pertinent to the patient complaint. Exam Const: General: cooperative, healthy appearing, comfortable, no acute distress, well developed, alert and well nourished Nutritional Appearance: well nourished and obese morbidly obese Orientation/consciousness: patient oriented x3 Limitations: no limitations HENMT: Head: normal to inspection Ears: hearing grossly normal bilaterally and external ears normal Face/Nose/Sinus: Normal external nose present, Normal nares present, Normal nasal mucous membranes and turbinates present, normal facial exam and face symmetric Face and sinus: normal facial exam and face symmetric Eyes: General: appearance normal, both eyes and all related structures Alignment and Position: alignment normal Periorbital: periorbital findings normal Pupils: Equal, round and reactive pupils present EOM: EOMs intact bilate
--- NOTE | 2023-09-05 09:58 | ECG_ITS ---
Measurements Intervals [place] Rate: 82 P: 37 CT: 168 QRS: 39 QRSD: 81 T: 37 QT: 359 QTc: 420 Interpretive Statements SINUS RHYTHM COMPARED TO ECG 02/22/2023 16:19:44 NO SIGNIFICANT CHANGES Electronically Signed On 09-05-2023 12:35:32 CDT by Sean Brothers M.D.
== END 2023-09-05 10:09 | disposition short-term general hospital (02) ==
PROVIDERS: Emergency Provider Nurse Practitioner; PCP Physician Assistant
DX: R07.9 Chest pain, unspecified (principal); J45.990 Exercise induced bronchospasm
CPT/HCPCS: 93005; 99213; G0463

== ENCOUNTER 2023-09-05 10:28 | Emergency (ER) | payer OTHER, SELFPAY ==
[2023-09-05] VITALS (7 sets, daily range): BP systolic 113–150; BP diastolic 79–99; PULSE 69–86; RESP 14–18; TEMP 36.6; O2SAT 96–100
--- NOTE | ~2023-09-05 | XR_ITS ---
XR chest 2V DATE: 09/05/2023 11:18 INDICATION: Pain TECHNIQUE: PA and lateral views COMPARISON: None FINDINGS: Normal heart size. No hilar or mediastinal enlargement. No pulmonary infiltrate or consolid ation, pleural effusion or pulmonary vascular congestion or pneumothorax is detected. IMPRESSION: No active cardiopulmonary disease Reviewed, dictated and finalized at location B.
--- NOTE | 2023-09-05 10:39 | ECG_ITS ---
Measurements Intervals [place] Rate: 78 P: 30 LA: 170 QRS: 28 QRSD: 78 T: 31 QT: 367 QTc: 419 Interpretive Statements SINUS RHYTHM COMPARED TO ECG 09/05/2023 10:03:27 NO SIGNIFICANT CHANGES Electronically Signed On 09-05-2023 12:35:38 CDT by Sean Brothers M.D.
[2023-09-05] MEDS: ASPIRIN 81 MG CHEWABLE TABLET 324 MG PO (10:56)
[2023-09-05 11:06] LABS: Basophils Percent Auto 0.4 % (0.2-1.2); Eosinophils Absolute Auto 0.1 K/mm3 (0-0.3); Eosinophils Percent Auto 1.3 % (0-4.4); Hematocrit 40.7 % (37.0-47.0); Hemoglobin 12.8 g/dL (12.0-15.0); Immature Granulocyte Absolute 0.02 K/mm3 (0.00-0.031); Immature Granulocyte Percent A 0.3 % (0-0.5); Lymphocytes Absolute Auto 2.52 K/mm3 (0.9-3.2); Lymphocytes Percent Auto 33.7 % (18.3-44.2); Mean Corpuscular HGB Conc 31.4 g/dl (32-36); Mean Corpuscular Hemoglobin 27.3 pg (26-34); Mean Corpuscular Volume 86.8 fl (80-100); Mean Platelet Volume 10.8 fl (7.4-10.4); Monocytes Absolute Auto 0.4 K/mm3 (0.1-0.6); Monocytes Percent Auto 5.1 % (2.6-8.5); Neutrophils Absolute Auto 4.4 K/mm3 (1.3-6.7); Neutrophils Percent Auto 59.2 % (45.5-73.1); Platelet Count Result 401 k/mm3 (150-375); Red Blood Count 4.69 M/mm3 (4.2-5.4); Red Cell Distribution Width 13.2 % (11.5-14.5); White Blood Count 7.5 K/mm3 (4.5-10.0)
[2023-09-05 11:14] LABS: Alanine Aminotransferase 17 U/L (6-35); Albumin Level 4.4 g/dL (3.5-5.1); Alkaline Phosphatase 69 U/L (38-126); Anion Gap 11 mmol/L (4-12); Aspartate Amino Transferase 27 U/L (14-36); Bilirubin,Total 0.6 mg/dL (0.2-1.3); Blood Urea Nitrogen 9 mg/dL (7-17); Carbon Dioxide 23 mmol/L (22-30); Chloride 102 mmol/L (98-107); Estimated CRCL calculation 146 ml/min; Estimated Glomerular Filt Rate > 60; Glucose 95 mg/dL (65-110); Lipase 45 U/L (23-300); Potassium 4.4 mmol/L (3.4-5.0); Sodium 136 mmol/L (137-145)
[2023-09-05 11:15] LABS: Prothrombin Time 14.1 Seconds (11.1-14.7)
[2023-09-05 11:16] LABS: Partial Thromboplastin Time 33.1 Seconds (22.3-36.8)
[2023-09-05 11:24] LABS: Troponin I < 0.012 ng/mL (0.000-0.034)
--- NOTE | 2023-09-05 11:30 | ED.CHESTPAIN ---
HPI - Chest Pain General Chief Complaint: Chest Pain Stated Complaint: SOB Time Seen by Provider: 09/05/23 11:29 Source: patient and family Mode of arrival: ambulatory Limitations: no limitations History of Present Illness HPI narrative: 42 years old white female came from home by private car complaining of intermittent needle like feeling and the sternum started yesterday at 5:00 p.m. while sitting watching TV, comes and goes usually last few seconds each time. She denies aggravating or relieving factors. Patient was complaining of intermittent heartburn like feeling in the epigastric area, history of GERD, does not take medications. She denies any fever, chills, nausea, vomiting, diarrhea, constipation, shortness of breath back pain or radiation of pain. Patient does not take medicine at home, healthy otherwise. Related Data Allergies Allergy/AdvReac Type Severity Reaction Status Date / Time No Known Allergies Allergy Other Uncoded 09/05/23 10:48 Review of Systems Review of Systems: All systems reviewed & are unremarkable except as noted in HPI and below PMFSH Past Medical History Medical History Exercise-induced asthma Surgical History Surgical History No pertinent past surgical history Family History Family History Mother Family history non-contributory Social History Social History Smoking status: Never smoker Alcohol intake: unknown Substance use type: does not use Living arrangements: with family Gender identity (if verbalized by the patient): Female Spiritual care concerns: No Exam Narrative: General appearance: Well-developed, well-nourished Skin: Normal color Head: Normocephalic, nontraumatic Eyes: Clear conjunctiva ENT: Oropharynx normal, ears normal, nose normal Neck: Supple, nontender Chest and respiratory: Airway patent, no respiratory distress, no accessory muscle use Heart: Regular rate/rhythm Abdomen: Soft, nontender, no organomegaly, quiet bowel sounds Vascular: Normal peripheral pulses, normal capillary refill. Musculoskeletal: Normal range of motion, nontender back Neurologic: Alert and oriented ?3, [employer] is normal as tested, no gross motor deficit Course Vital Signs Vital signs: Vital Signs Pulse Rate 78 09/05/23 10:42 Respiratory Rate 16 09/05/23 10:42 Blood Pressure 150/99 H 09/05/23 10:42 Pulse Oximetry 98 09/05/23 10:42 Oxygen Delivery Room Air 09/05/23 10:42 Pulse Rate 83 09/05/23 10:49 Respiratory Rate 16 09/05/23 10:42 Blood Pressure 150/99 H 09/05/23 10:42 Pulse Oximetry 98 09/05/23 10:42 Oxygen Delivery Room Air 09/05/23 10:42 MDM - Chest Pain MDM Narrative Medical decision making narrative: Patient presents with intermittent needle like feeling at the sternum, Differential diagnosis musculoskeletal, anxiety like symptoms, GERD, esophagitis, gastritis, coronary artery disease is less likely. Blood workup today showed no significant abnormalities, cardiac score is 1 EKG on arrival showed no significant changes compared to last EKG on February 22, 2023 Chest x-ray showed no acute abnormalities, in the ED patient received GI cocktail with significant improvement, currently is asymptomatic, pt was discharged to home.the pt,s condition upon discharge was fair,education was provided to the pt in reference to the final impression,discharge study results,treatment,prognosis and need for follow up . Differential Diagnosis Differential jennifer
[2023-09-05] MEDS: BELLADONNA ALK/PHENOB ELIX 10 ML, MAG HYDROX/ALUMINUM HYD/SIMETH 30 ML, LIDOCAINE HCL 2... PO (12:05)
[2023-09-05 13:01] LABS: D Dimer < 0.27 ug/mL (<0.48)
== END 2023-09-05 12:24 | disposition home or self-care (01) ==
PROVIDERS: Emergency Provider Emergency Medicine; PCP Physician Assistant
DX: R12 Heartburn (principal); R07.89 Other chest pain; J45.990 Exercise induced bronchospasm
CPT/HCPCS: 36415; 71046; 80053; 83690; 84484; 85025; 85380; 85610; 85730; 93005; 99284; A9270

== ENCOUNTER 2023-10-14 18:14 | Emergency (ER) | payer OTHER, SELFPAY ==
--- NOTE | ~2023-10-14 | CT_ITS ---
EXAMINATION: CT lumbar spine wo con DATE: 10/14/2023 21:41 INDICATION: pain, please include SI joints and sacrum . TECHNIQUE: Computed tomography (CT) of the lumbar spine was performed without intravenous contrast. A utomated exposure control and iterative reconstruction technique were employed. The dose-length produ ct was 1285.36 mGy-cm. COMPARISON: X-ray L-spine 05/10/2022. FINDINGS: 5 nonrib-bearing lumbar-type vertebral bodies. Pedicles intact. 3 mm retrolisthesis at L5-S 1. Vertebral body heights preserved. Moderate disc space narrowing and vacuum phenomenon at L4-5 and L5-S1. 6 mm central protrusion at L4-5 causing mild canal stenosis. Moderate bilateral neural foramin al narrowing at L5-S1 secondary to degenerative disc and facet change. Multilevel mild lower lumbar f acet arthropathy. Degenerative changes in the bilateral SI joints. No severe canal stenosis or severe neural foraminal narrowing. IMPRESSION: No acute fracture or traumatic malalignment in the lumbar spine. Reviewed, dictated and finalized at location K.
[2023-10-14 18:15] VITALS: BP 140/88; PULSE 90; RESP 16; TEMP 36.5; O2SAT 98
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
[2023-10-14] MEDS: ACETAMINOPHEN 500 MG TABLET 1000 MG PO (19:59)
[2023-10-14] MEDS: IBUPROFEN 400 MG TABLET 800 MG PO (19:59)
[2023-10-14] MEDS: LIDOCAINE 5% PATCH 1 PATCH TRANSDERM (20:00)
[2023-10-14] MEDS: CYCLOBENZAPRINE HCL 10 MG TABLET PO (20:00)
[2023-10-14 21:27] LABS: Appearance Urine Clear (Clear); Bilirubin Urine Negative (Negative); Blood Urine Negative (Negative); Color Urine Yellow (Yellow); Glucose Urine UA Negative (Negative); Ketones Urine Negative (Negative); Leukocyte Esterase Ur Negative LEU/UL (Negative); Nitrate Urine Negative (Negative); Protein Urine Negative (Negative); Specific Grav Ur 1.006 (1.001-1.035); Urobilinogen Urine 0.2 mg/dL (<2.0); pH Urine 5.5 (5.0-9.0)
[2023-10-14 21:31] LABS: Add Urine Microscopic? NO
[2023-10-14 22:37] VITALS: BP 132/73; PULSE 84; RESP 12; O2SAT 100
== END 2023-10-14 22:37 | disposition home or self-care (01) ==
PROVIDERS: Emergency Provider Physician Assistant; PCP Physician Assistant
DX: M54.16 Radiculopathy, lumbar region (principal); J45.990 Exercise induced bronchospasm
CPT/HCPCS: 72131; 81003; 81025; 99284; A9270

== ENCOUNTER 2024-01-01 15:35 | Emergency (ER) | payer OTHER, SELFPAY ==
--- NOTE | 2024-01-01 15:39 | ED.BACK ---
HPI - Back Pain/Injury General Chief Complaint: Back Pain/Injury Stated Complaint: Back Pain Time Seen by Provider: 01/01/24 15:57 Source: patient and RN notes reviewed Mode of arrival: ambulatory Limitations: no limitations History of Present Illness HPI Narrative: 43-year-old female presents with concern for back pain. Reports she has history of sciatica and this feels similar to her typical sciatica flare up. She denies any injury or trauma. She perianal anesthesia, bowel or bladder dysfunction, fever, abdominal pain, weakness in any extremity. She took motorized this afternoon. The pain started this morning. She denies dysuria, frequency, urgency. MD elicited complaint: back pain Related Data Allergies Allergy/AdvReac Type Severity Reaction Status Date / Time No Known Allergies Allergy Other Uncoded 01/01/24 15:54 Review of Systems Review of Systems: CONSTITUTIONAL: Denies malaise, chills, sweats, or fever. CARDIOVASCULAR: Denies chest pain, palpitations, or edema. RESPIRATORY: Denies cough or dyspnea. GASTROINTESTINAL: Denies abdominal pain, nausea, vomiting, diarrhea, loss of bowel function GENITOURINARY: Denies dysuria, hematuria, frequency, loss of bladder function. SKIN: Denies rash or itching. MUSCULOSKELETAL: Reports low back pain NEUROLOGIC: Denies numbness, weakness, or headache. All systems reviewed & are unremarkable except as noted in HPI and below PMFSH Past Medical History Medical History Exercise-induced asthma Surgical History Surgical History No pertinent past surgical history Family History Family History Mother Family history non-contributory Social History Social History Smoking status: Never smoker Alcohol intake: unknown Substance use type: does not use Living arrangements: with family Gender identity (if verbalized by the patient): Female Spiritual care concerns: No Comments At time of signature, agree with nursing past medical, surgical, social and family history. There is no relevant family history pertinent to the presenting complaint Exam Narrative: GENERAL: Well-appearing, well-nourished, and in no acute distress. HEAD: Normocephalic, atraumatic. EYES: PERRLA and EOMI. NECK: Supple. No lymphadenopathy. CHEST: Clear to auscultation. No respiratory distress. HEART: Regular rate and rhythm. Distal pulses palpable and equal, cap refill <3 seconds ABDOMEN: Soft, nontender, nondistended, normal active bowel sounds, no palpable or pulsatile masses. No CVA tenderness MUSCULOSKELETAL: Normal range of motion and strength in all extremities; 5/5 strength with hip flexion and extension, dorsiflexion and extension, knee flexion and extension, plantar flexion and extension. Normal sensation in dermatomal distributions with sensitivity to light touch and pain. No midline back tenderness to palpation. No paraspinal tenderness. Transfers from lying to sitting to standing. SKIN: Warm, dry, no rash. No ecchymosis, erythema, open wounds to back. NEURO: No focal deficits. Alert and oriented x3. Reflexes intact. Normal gait. PSYCH: Normal mood and affect Course Course Emergency Course: Patient is aware of diagnosis, understands and agrees to treatment plan. Anticipatory guidance given. Patient agrees to follow-up as directed and is aware of reasons to seek care at the emergency department. Portions of this record may have been created with voice recognition software Level of Care: Express Care Visit Vital Signs Vital signs: Reviewed. MDM - Back Pain/Injury MDM Narrative Medical decision making narrative: I evaluated this in the express care. History is obtained from patient who is an independent historian and physical exam was performed.?
[2024-01-01 15:43] VITALS: BP 111/85; PULSE 114; RESP 20; TEMP 36.2; O2SAT 99
== END 2024-01-01 16:40 | disposition home or self-care (01) ==
PROVIDERS: Emergency Provider Nurse Practitioner; PCP Physician Assistant
DX: M54.50 Low back pain, unspecified (principal); J45.990 Exercise induced bronchospasm
CPT/HCPCS: 99213; G0463

== ENCOUNTER 2024-03-07 08:19 | Emergency (ER) | payer OTHER, SELFPAY ==
[2024-03-07 08:21] VITALS: BP 130/83; PULSE 80; RESP 20; TEMP 36.6; O2SAT 97
--- NOTE | 2024-03-07 08:56 | ED.BACK ---
HPI - Back Pain/Injury General Chief Complaint: Back Pain/Injury Stated Complaint: Back Pain Time Seen by Provider: 03/07/24 08:45 Source: patient and RN notes reviewed Mode of arrival: ambulatory Limitations: no limitations History of Present Illness HPI Narrative: Patient presents today complaining of bilateral low back pain since yesterday after lifting a heavy box. She reports radiation of the pain to her left buttock today. Currently rates her pain 4/10 and took some ibuprofen yesterday without relief. Denies loss of bowel or bladder control. Denies numbness or tingling in the genitalia or lower extremities. Patient has been seen at [facility] in the ER for low back pain several times in the past, but has never followed up with her PCP regarding this. Related Data Allergies Allergy/AdvReac Type Severity Reaction Status Date / Time No Known Allergies Allergy Other Uncoded 03/07/24 08:35 Review of Systems Review of Systems: CONSTITUTIONAL: Denies body aches, fever, chills, or sweats. EYES: Denies visual changes, redness, or discharge. ENT: Denies rhinorrhea, congestion, sore throat, or otalgia. CARDIOVASCULAR: Denies chest pain, palpitations, or edema. RESPIRATORY: Denies cough or dyspnea. GASTROINTESTINAL: Denies abdominal pain, nausea, vomiting, or diarrhea. GENITOURINARY: Denies dysuria or hematuria. SKIN: Denies rash, itching, or wounds. MUSCULOSKELETAL: Denies joint pain, or myalgia.+ low back pain NEUROLOGIC: Denies headache, numbness, tingling, or weakness. PSYCH: Denies depression or anxiety. [facility] Past Medical History Medical History Exercise-induced asthma Surgical History Surgical History No pertinent past surgical history Family History Family History Mother Family history non-contributory Social History Social History Smoking status: Never smoker Alcohol intake: unknown Substance use type: does not use Living arrangements: with family Gender identity (if verbalized by the patient): Female Spiritual care concerns: No Comments At time of signature, I have reviewed and agree with nursing past medical, surgical, social and family history unless otherwise noted. Please see nursing chart for further information. There is no relevant family history pertinent to the presenting complaint Exam Narrative: GENERAL: Well-appearing, well-nourished, and in no acute distress. HEAD: Normocephalic, atraumatic. EYES: EOMI. No redness or drainage. Conjunctivae normal. ENT: Mucous membranes pink and moist. NECK: Normal AROM. CHEST: No respiratory distress. MUSCULOSKELETAL: No bony tenderness of the spine. Right lower lumbar paraspinal muscle tenderness. Left lower lumbar paraspinal muscle tenderness that extends the left glute. Distal sensation intact. Saddle sensation intact. Capillary refill normal. 5/5 strength in bilateral lower extremities. EXTREMITIES: Normal range of motion. No edema. SKIN: Warm, dry, no rash. Capillary refill normal. Normal skin turgor. NEURO: No focal deficits. Alert and oriented x3. Gait steady. PSYCH: Normal affect. No signs of depression or anxiety. Course Course Level of Care: Express Care Visit Vital Signs Vital signs: Vital Signs Temperature 97.9 F 03/07/24 08:21 Pulse Rate 80 03/07/24 08:21 Respiratory Rate 20 03/07/24 08:21 Blood Pressure 130/83 03/07/24 08:21 Pulse Oximetry 97 03/07/24 08:21 Oxygen Delivery Room Air 03/07/24 08:21 Temperature 97.9 F 03/07/24 08:21 Pulse Rate 80 03/07/24 08:21 Respiratory Rate 20 03/07/24 08:21 Blood Pressure 130/83 03/07/24 08:21 Pulse Oximetry 97 03/07/24 08:21 Oxygen Delivery Room Air 03/07/24 08:21 Review
== END 2024-03-07 09:15 | disposition home or self-care (01) ==
PROVIDERS: Emergency Provider Nurse Practitioner; PCP Physician Assistant
DX: S39.012A Strain of muscle, fascia and tendon of lower back, initial encounter (principal); X50.0XXA Overexertion from strenuous movement or load, initial encounter
CPT/HCPCS: 99213; G0463

== ENCOUNTER 2024-09-21 10:51 | Emergency (ER) | payer OTHER, SELFPAY ==
[2024-09-21 11:05] VITALS: BP 123/73; PULSE 91; RESP 14; TEMP 36.7; O2SAT 100
--- NOTE | 2024-09-21 12:07 | ED.EAR ---
HPI - Ear Problem General Chief complaint: Ear Stated complaint: left ear pain Time Seen by Provider: 09/21/24 11:15 Source: patient and RN notes reviewed Mode of arrival: ambulatory Limitations: no limitations History of Present Illness HPI Narrative: 44-year-old female presents Express Care complaining of left ear pain starting today. Patient stated she started with her symptoms this morning ascitic at worse after she took a shower. She stated that when she walked outside and felt like she got range your urine the mid the pain worse as well. Patient has not taken anything [id number] for treatment management. Patient denies any other symptoms. Denies any fevers, chills, body aches, decreased hearing. Related Data Allergies Allergy/AdvReac Type Severity Reaction Status Date / Time No Known Allergies Allergy Verified 09/21/24 11:01 Review of Systems Review of Systems: CONSTITUTIONAL: Denies fever, chills, or sweats. EYES: Denies visual changes, redness, or discharge. ENT: Denies rhinorrhea, congestion, sore throat. Positive for otalgia. CARDIOVASCULAR: Denies chest pain, palpitations, or edema. RESPIRATORY: Denies cough or dyspnea. GASTROINTESTINAL: Denies abdominal pain, nausea, vomiting, or diarrhea. GENITOURINARY: Denies dysuria or hematuria. SKIN: Denies rash or itching. MUSCULOSKELETAL: Denies back pain, joint pain, or myalgia. NEUROLOGIC: Denies headache, numbness, or weakness. PSYCHIATRIC: Denies anxiety or depression. All other systems reviewed are negative, except as documented in HPI. [facility] Past Medical History Medical History Exercise-induced asthma Surgical History Surgical History No pertinent past surgical history Family History Family History Mother Family history non-contributory Social History Social History Smoking status: Never smoker Alcohol intake: unknown Substance use type: does not use Living arrangements: with family Gender identity (if verbalized by the patient): Female Spiritual care concerns: No Comments At the time of my signature, I reviewed and agree with the nursing past medical, surgical, social, and family history. There is no relevant family history pertinent to the patient complaint. Exam Narrative: GENERAL: This is a well-nourished, well-developed adult, in no apparent distress. They are non ill-appearing, nontoxic appearing. HEAD: normocephalic, atraumatic. EYES: Sclera clear/white. Vision is grossly intact. EARS: External ears normal, auditory canals clear and without drainage, left TM erythemic with mild swelling, non bulging, without perforation. Right TM ledezma, good cone of light, no swelling or erythema, no perforation. Hearing grossly intact. NOSE: External nose normal with no obvious nasal discharge, nares without redness, no rhinorrhea. THROAT: Mucous membranes moist, posterior pharynx clear without swelling. Uvula midline. NECK: Neck supple, non-tender without lymphadenopathy, masses or thyromegaly. CARDIOVASCULAR: Regular rate and rhythm without murmurs, gallops, or rubs. RESPIRATORY: Clear to auscultation. Breath sounds equal bilaterally. No wheezes, rales, or rhonchi. SKIN: warm, Dry, intact with no suspicious lesions or rash, good texture and turgor. NEURO: awake, alert, and oriented to person, place and time. There were no obvious focal neurologic abnormalities. EXTREMITIES: No joint tenderness, effusion, or edema noted. Course Course Emergency Course: Patient is aware of diagnosis, understands and agrees to treatment plan. Anticipatory guidance given. Patient agrees to follow-up as directed and is aware of reasons to seek care at the emergency department. Portions of this record may have been created with voice recognition software Level of Care: Express Care Visit Vital Signs Vital signs: Reviewed Medical Decision Making MDM Narrative Medical decision making narrative: Symptoms are consistent with a otitis media. Infection appears mild, discussed watchful waiting through shared decision making with patient however she would like to be treated. Will treat Treat empirically with Augmentin. Discussed physical exam findings. Advised supportive measures and signs/symptoms to go to the ER. Pt is appropriate for outpt treatment and f/u. Differential Diagnosis Differential Diagnosis: Otitis media, otitis externa, otalgia Critical Care Time Critical Care Time Critical Care Time: No Discharge Plan Discharge Clinical Impression: Otitis media Qualifiers: Otitis media type: unspecified Chronicity: acute Qualified Code(s): H66.90 - Otitis media, unspecified, unspecified ear Patient Disposition: Home Condition: Stable Instructions: Antibiotic Form, Ear Infection (ED) Additional Instructions: Take antibiotics as directed. Recommend antihistamine such as Benadryl, Zyrtec or Corrine for sinus congestion Flonase nasal spray, 1 spray in each nostril once daily until symptoms improve Symptomatic treatment includes: rest, fluids, and increase humidity of the air at home. Tylenol 1000mg every 8 hours as needed to reduce fever, pain Please schedule a follow-up visit with your personal physician for further evaluation and treatment within 3-5days. If your symptoms persist, change or worsen significantly, go to the emergency department for further evaluation. Patient Language: Djib[place]ian Prescriptions: New amoxicillin-pot clavulanate 875-125 mg tablet 1 tablet PO Q12H 5 Days Qty: 10 0RF Follow-up/Referrals: Rossy,FELICE Blas [Primary Care Provider] - Time of Disposition: 11:33
[2024-09-21 12:52] LABS: BEDSIDEPREGUCG Negative (Negative)
== END 2024-09-21 11:37 | disposition home or self-care (01) ==
PROVIDERS: PCP Physician Assistant
DX: H66.92 Otitis media, unspecified, left ear (principal); J45.990 Exercise induced bronchospasm
CPT/HCPCS: 81025; 99213; G0463

== ENCOUNTER 2024-10-21 14:06 | Emergency (ER) | payer OTHER, SELFPAY ==
--- NOTE | ~2024-10-21 | XR_ITS ---
XR elbow LT min 3V Ordering provider: Scarlet Lynn APRN History: . pain and swelling x 1 DAY . Comparison: None. FINDINGS: BONES: No acute fracture or dislocation. JOINT SPACES: Normal. SOFT TISSUES: Normal. No definite joint effusion. IMPRESSION: No acute osseous abnormality left elbow. Reviewed, dictated and finalized at location A.
[2024-10-21 14:13] VITALS: BP 125/67; PULSE 87; RESP 16; TEMP 36.7; O2SAT 100
--- NOTE | 2024-10-21 14:41 | ED_ITS ---
HPI - Extremity Injury (Upper) General Chief Complaint: Extremity Injury, Upper Stated Complaint: swelling on upper left arm Source: patient Mode of arrival: ambulatory Limitations: no limitations History of Present Illness HPI narrative: Patient is a 44 year old female who presents to the clinic with complaints of swelling and pain to the left elbow. Denies any decreased ROM, numbness, tingling, or radiation of pain. Related Data Allergies Allergy/AdvReac Type Severity Reaction Status Date / Time No Known Allergies Allergy Verified 10/21/24 14:27 Review of Systems Review of Systems: CONSTITUTIONAL: Denies body aches, fever, chills EYES: Denies visual changes ENT: Denies rhinorrhea, congestion CARDIOVASCULAR: Denies chest pain, palpitations, or edema. RESPIRATORY: Denies cough or dyspnea. SKIN: Denies rash, itching, or wounds. MUSCULOSKELETAL: Denies back pain, joint pain, or myalgia. Reports left elbow swelling and pain. NEUROLOGIC: Denies headache, numbness, tingling, or weakness. All systems reviewed & are unremarkable except as noted in HPI and below PMFSH Past Medical History Medical History Exercise-induced asthma Surgical History Surgical History No pertinent past surgical history Family History Family History Mother Family history non-contributory Social History Social History Smoking status: Never smoker Alcohol intake: unknown Substance use type: does not use Living arrangements: with family Gender identity (if verbalized by the patient): Female Spiritual care concerns: No Comments At time of signature, I have reviewed and agree with nursing past medical, surgical, social and family history unless otherwise noted. Please see nursing chart for further information. There is no relevant family history pertinent to the presenting complaint. Exam Narrative: MUSCULOSKELETAL EXAM GENERAL: Well-appearing, well-nourished, and in no acute distress. HEAD: Normocephalic, atraumatic. NECK: Supple. CHEST: Speaks in full sentences. No respiratory distress. HEART: Regular rate and rhythm. Normal and equal peripheral pulses. EXTREMITIES: Left elbow has normal strength and sensation, normal range of motion with flexion/extension, but endorses pain with movement. Edema noted. No ecchymosis, No point tenderness. No open wounds, skin tenting, or obvious deformity; alignment normal, pulse palpable and equal bilaterally, skin warm, dry, pink. Capillary refill less than 3 seconds. Distal sensation intact. SKIN: Warm, dry, no rash. NEURO: Alert and oriented x3. PSYCH: Normal mood and affect Course Course Level of Care: Express Care Visit Vital Signs Vital signs: Vital Signs Temperature 98.0 F 10/21/24 14:13 Pulse Rate 87 10/21/24 14:13 Respiratory Rate 16 10/21/24 14:13 Blood Pressure 125/67 10/21/24 14:13 Pulse Oximetry 100 10/21/24 14:13 Oxygen Delivery Room Air 10/21/24 14:13 Temperature 98.0 F 10/21/24 14:13 Pulse Rate 87 10/21/24 14:13 Respiratory Rate 16 10/21/24 14:13 Blood Pressure 125/67 10/21/24 14:13 Pulse Oximetry 100 10/21/24 14:13 Oxygen Delivery Room Air 10/21/24 14:13 MDM - Extremity Injury (Upper) MDM Narrative Medical decision making narrative: Discussed physical exam findings and xray. Kevon wrap applied. Advised supportive measures and signs/symptoms to go to the ER. Pt is appropriate for outpatient treatment and follow up. Differential Diagnosis Differential diagnosis: Likely other (fracture of elbow, sprain or strain of elbow) Critical Care Time Critical Care Time Critical Care Time: No Discharge Plan Discharge Clinical Impression: Sprain and strain of elbow Patient Disposition: Home Condition: Stable Instructions: Elbow Sprain (ED) Additional Instructions: Rest. Avoid pushing, pulling, lifting or anything that worsens the symptoms. Use kevon wrap for support. Tylenol every 8 hours as needed You can alternate with ibuprofen Alternate ice/heat to the site. Lidocaine or salon pas pain patch or use pain cream like icy/hot or biofreeze. Follow up with your primary care provider as needed in 1 week Go to the ER for worsening symptoms or concerns Patient Language: Pashto Follow-up/Referrals: Rossy,FELICE Blas [Primary Care Provider] - Stand Alone Forms: Work/School Release IP Time of Disposition: 15:28
== END 2024-10-21 15:37 | disposition home or self-care (01) ==
PROVIDERS: PCP Physician Assistant
DX: S53.402A Unspecified sprain of left elbow, initial encounter (principal); S56.912A Strain of unspecified muscles, fascia and tendons at forearm level, left arm, initial encounter; X58.XXXA Exposure to other specified factors, initial encounter; J45.990 Exercise induced bronchospasm
CPT/HCPCS: 73080; 99213; G0463

== ENCOUNTER 2025-02-26 12:45 | Emergency (ER) | payer MEDICAID, SELFPAY ==
[2025-02-26 12:53] VITALS: BP 136/81; PULSE 52; RESP 16; TEMP 36.7; O2SAT 96
[2025-02-26 13:16] LABS: BEDSIDEPREGUCG Negative (Negative)
--- NOTE | 2025-02-26 13:29 | ED.BACK ---
HPI - Back Pain/Injury General Chief Complaint: Back Pain/Injury Stated Complaint: back pain Time Seen by Provider: 02/26/25 13:15 Source: patient and RN notes reviewed Mode of arrival: ambulatory Limitations: no limitations History of Present Illness HPI Narrative: 44-year-old female presents Express Care complaining of low back pain started today. Patient said hour to ago while she is at work she was lifting boxes of shampoo bottles to place on a shelf she felt something pull in her left back developed pain since. Patient denies any saddle anesthesia, shooting pains, numbness, tingling, loss of bowel or bladder, leak weakness, or any other symptoms or and injuries. Patient is not doing [id number] to help with pain. Patient is also concerned about possible could she has not had a period in 2 months. Patient denies any significant past medical history. Related Data Home Medications ?Medication ?Instructions ?Recorded ?Confirmed ?Last Taken ?Type diet pill BYMOUTH DAILY 02/26/25 Unknown History Allergies Allergy/AdvReac Type Severity Reaction Status Date / Time No Known Allergies Allergy Verified 02/26/25 12:58 Review of Systems Review of Systems: CONSTITUTIONAL: Denies fever, chills, or sweats. EYES: Denies visual changes, redness, or discharge. ENT: Denies rhinorrhea, congestion, sore throat, or otalgia. CARDIOVASCULAR: Denies chest pain, palpitations, or edema. RESPIRATORY: Denies cough or dyspnea. GASTROINTESTINAL: Denies abdominal pain, nausea, vomiting, or diarrhea. GENITOURINARY: Denies dysuria or hematuria. SKIN: Denies rash or itching. MUSCULOSKELETAL: Positive for low back pain. Negative for joint pain, or myalgia. NEUROLOGIC: Denies headache, numbness, tingling, loss of bowel or bladder function, saddle anesthesia, leg weakness, or weakness. PSYCHIATRIC: Denies anxiety or depression. All other systems reviewed are negative, except as documented in HPI. [facility] Past Medical History Medical History Exercise-induced asthma Surgical History Surgical History No pertinent past surgical history Family History Family History Mother Family history non-contributory Social History Social History Smoking status: Never smoker Alcohol intake: unknown Substance use type: does not use Living arrangements: with family Gender identity (if verbalized by the patient): Female Spiritual care concerns: No Comments At the time of my signature, I reviewed and agree with the nursing past medical, surgical, social, and family history. There is no relevant family history pertinent to the patient complaint. Exam Narrative: GENERAL: This is a well-nourished, well-developed adult, in no apparent distress. They are non ill-appearing, nontoxic appearing. HEAD: normocephalic, atraumatic. EYES: Sclera clear/white. Conjunctiva normal. Vision is grossly intact. Extraocular movements intact EARS: External ears normal, Hearing grossly intact. NOSE: External nose normal THROAT: Mucous membranes moist, NECK: Neck supple, non-tender without lymphadenopathy, masses or thyromegaly. CARDIOVASCULAR: Regular rate and rhythm RESPIRATORY: Respiratory rate normal, respiratory effort nonlabored, no respiratory distress SKIN: warm, Dry, intact with no suspicious lesions or rash, good texture and turgor. NEURO: awake, alert, and oriented to person, place and time. There were no obvious focal neurologic abnormalities. EXTREMITIES: No joint tenderness, effusion, or edema noted. BACK: Left lower manager background to palpate. No CVA tenderness. No cervical, thoracic, or lumbar point tenderness, no crepitus or step-offs. Course Course Emergency Course: Portions of this record may have been created with voice recognition software Level of Care: Express Care Visit Vital Signs Vital signs: Vital Signs Temperature 98.0 F 02/26/25 12:53 Pulse Rate 52 L 02/26/25 12:53 Respiratory Rate 16 02/26/25 12:53 Blood Pressure 136/81 02/26/25 12:53 Pulse Oximetry 96 02/26/25 12:53 Oxygen Delivery Room Air 02/26/25 12:53 Temperature 98.0 F 02/26/25 12:53 Pulse Rate 52 L 02/26/25 12:53 Respiratory Rate 16 02/26/25 12:53 Blood Pressure 136/81 02/26/25 12:53 Pulse Oximetry 96 02/26/25 12:53 Oxygen Delivery Room Air 02/26/25 12:53 Reviewed MDM - Back Pain/Injury MDM Narrative Medical decision making narrative: Urine hCG negative for . Advised patient follow-up with OBGYN about her abnormal cycles. Patient likely has a lumbar strain. Will prescribe muscle relaxers as needed for muscle spasms. Recommend supportive therapy. Discussed physical exam findings. Advised supportive measures and signs/symptoms to go to the ER. Pt is appropriate for outpt treatment and f/u. Differential Diagnosis Differential diagnosis: Likely lumbar radiculopathy, sciatica and strain of lumbar region Lab Data Attestation: I reviewed the patient's lab results. Labs: Lab Results 02/26/25 Range/Units 13:05 POC Urine HCG, Qual Negative (Negative) Critical Care Time Critical Care Time Critical Care Time: No Discharge Plan Discharge Clinical Impression: Strain of lumbar region Qualifiers: Encounter type: initial encounter Qualified Code(s): S39.012A - Strain of muscle, fascia and tendon of lower back, initial encounter Patient Disposition: Home Condition: Stable Instructions: Low Back Strain (ED), Lower Back Exercises (ED) Additional Instructions: Take the muscle relaxer as directed. Do not drive or operate heavy machine, or work while taking the medication as it can make you drowsy. You may take ibuprofen 600 mg to 800 mg every 6-8 hours. Do not exceed more than 800 mg of ibuprofen per dose. Do not exceed more than 3200 mg ibuprofen in a day. You may take up to 1000 mg Tylenol every 6-8 hours. Do not exceed 1000 mg per dose, do exceed more than 4000 mg of Tylenol in a day. May apply ice to the affected area, 20 minutes at a time few times a day for next 48 hours then switch to heat few times a day 20 minutes at a time. Please follow-up with your primary care provider if pain persist especially after 2 weeks Rest. Avoid pushing, pulling, lifting --running or excessive walking-- or anything that worsens the symptoms You may try stretching your lower back for like low back exercises, or doing spinal decompression to help with symptoms. Go to the emergency department if you develop any numbness or tingling to your groin, weakness in your legs, or any loss of bowel or bladder function. Patient Language: Welsh Prescriptions: New methocarbamol 750 mg tablet 750 mg PO TID Qty: 12 0RF No Action diet pill BYMOUTH DAILY Patient Comments: Hydroxycut (OTC diet pill) Follow-up/Referrals: PHYSICIAN,DANCE HISTORIAN [Primary Care Provider, Internal Medicine] Stand Alone Forms: Work/School Release IP Time of Disposition: 13:27
== END 2025-02-26 13:35 | disposition home or self-care (01) ==
DX: S39.012A Strain of muscle, fascia and tendon of lower back, initial encounter (principal); X50.3XXA Overexertion from repetitive movements, initial encounter; Y99.0 Civilian activity done for income or pay; J45.990 Exercise induced bronchospasm
CPT/HCPCS: 81025; 99213; G0463

== ENCOUNTER 2025-03-25 12:18 | Emergency (ER) | payer MEDICAID, SELFPAY ==
[2025-03-25 12:26] VITALS: BP 129/68; PULSE 79; RESP 16; TEMP 36.5; O2SAT 99
--- NOTE | 2025-03-25 12:29 | ED.GENADULT ---
HPI - General Adult General Chief complaint: Unspecified Stated complaint: Pt States Fainted, Believes Possible Diabetic Time Seen by Provider: 03/25/25 12:35 Source: patient, RN notes reviewed and old records reviewed Mode of arrival: ambulatory Limitations: no limitations History of Present Illness HPI narrative: 44 year old female who presets to express care with complaints of having some slight nausea after eating breakfast this morning. She proceeded to get ready to go to grocery store and had episode at home of brief dizziness with near syncope, did not fall eased self to floor for a while and rested, no LOC or any injury. Patient states that it felt like room was spinning. Patient reports that she did have some headache pain to top of her head and took Tylenol about an hour prior to arrival with pain decrease obtained. Patient reports concern that she is diabetic and that is what caused her symptoms states has been very thirsty lately. MD complaint: near syncopal episode. headache Onset (ago): day(s) (this morning) Location: head Severity scale (1-10): 4 Treatments prior to arrival: other (Tylenol) Related Data Home Medications ?Medication ?Instructions ?Recorded ?Confirmed ?Last Taken ?Type No Home Medications 03/25/25 03/25/25 Unknown History Allergies Allergy/AdvReac Type Severity Reaction Status Date / Time No Known Allergies Allergy Verified 03/25/25 12:32 Review of Systems Review of Systems: CONSTITUTIONAL: Denies fever, chills, or sweats. EYES: Denies visual changes, redness, or discharge. ENT: Denies rhinorrhea, congestion, sore throat, or otalgia. CARDIOVASCULAR: Denies chest pain, palpitations, or edema. RESPIRATORY: Denies cough or dyspnea. GASTROINTESTINAL: Denies abdominal pain,positive for episode of nausea this morning after breakfast, no vomiting, or diarrhea. GENITOURINARY: Denies dysuria or hematuria. SKIN: Denies rash or itching. MUSCULOSKELETAL: Denies back pain, joint pain, or myalgia. NEUROLOGIC: Reports headache, no numbness, or weakness. reports brief episode of dizziness with near syncope. PSYCHIATRIC: Denies anxiety or depression. All systems reviewed & are unremarkable except as noted in HPI and below PMFSH Past Medical History Medical History Degenerative disc disease Sciatica Bronchitis Exercise-induced asthma Surgical History Surgical History No pertinent past surgical history Family History Family History Mother Family history non-contributory Social History Social History Smoking status: Never smoker Alcohol intake: unknown Substance use type: does not use Living arrangements: with family Gender identity (if verbalized by the patient): Female Spiritual care concerns: No Comments At time of signature, agree with nursing past medical, surgical, social and family history. There is no relevant family history pertinent to the presenting complaint Exam Narrative: GENERAL: Well-appearing, well-nourished, and in no acute distress. HEAD: Normocephalic, atraumatic. EYES: PERRLA and EOMI. no nystagmus ENT: Nares clear, no rhinorrhea or epistaxis. Mucous membranes moist. NECK: Supple, no lymphadenopathy CHEST: Clear to auscultation. No respiratory distress. SAO2 99% on room air HEART: Regular rate and rhythm. No murmur heard. Normal peripheral pulses. ABDOMEN: Soft, nontender, nondistended, normal active bowel sounds. EXTREMITIES: Normal range of motion. No edema. SKIN: Warm, dry, no rash. NEURO: No focal deficits. Alert and oriented x3.moves all extremities on own power, cranial nerves intact without deficit. Course Course Emergency Course: Patient is aware of diagnosis, understands and agrees to treatment plan.? Anticipatory guidance given.? Patient agrees to follow-up as directed and is aware of reasons to seek care at the emergency department. Portions of this record may have been created with voice recognition software Level of Care: Express Care Visit Vital Signs Vital signs: Vital Signs Temperature 36.5 C 03/25/25 12: Pulse Rate 79 03/25/25 12: Respiratory Rate 16 03/25/25 12:26 Blood Pressure 129/68 03/25/25 12:26 Pulse Oximetry 99 03/25/25 12:26 Oxygen Delivery Room Air 03/25/25 12:26 Temperature 36.5 C 03/25/25 12: Pulse Rate 79 03/25/25 12:26 Respiratory Rate 16 03/25/25 12:26 Blood Pressure 129/68 03/25/25 12:26 Pulse Oximetry 99 03/25/25 12:26 Oxygen Delivery Room Air 03/25/25 12:26 Reviewed Medical Decision Making MDM Narrative Medical decision making narrative: Exam findings and imaging show no acute concerns or changes; patient is non-toxic appearing and is in no distress.? Patient is appropriate for outpatient treatment and follow-up Differential Diagnosis Differential Diagnosis: episode of dizziness, near syncopal episode, headache, concern for possible diabetes. Medical Records Medical records reviewed: Yes I reviewed the external patient's medical records. Vital Signs Vital Signs: Vital Signs Temperature 36.5 C 03/25/25 12:26 Pulse Rate 79 03/25/25 12:26 Respiratory Rate 16 03/25/25 12:26 Blood Pressure 129/68 03/25/25 12:26 Pulse Oximetry 99 03/25/25 12:26 Oxygen Delivery Room Air 03/25/25 12:26 Temperature 36.5 C 03/25/25 12:26 Pulse Rate 79 03/25/25 12:26 Respiratory Rate 16 03/25/25 12:26 Blood Pressure 129/68 03/25/25 12:26 Pulse Oximetry 99 03/25/25 12:26 Oxygen Delivery Room Air 03/25/25 12:26 reviewed Lab Data Lab results reviewed: Yes I reviewed the patient's lab results. Lab results narrative: Capillary glucose 104, urine dip: yellow clear,PH 7.0,specific gravity 1.020, Protein negative, Glucose negative, Ketones negative, Blood negative, Nitrite negative, Bilirubin negative, Urobilinogen 0.2, Leukocytes negative. Labs: Lab Results 03/25/25 03/25/25 Range/Units 12:36 12:47 POC Capillary Glucose 104 (65-105) mg/dl POC Urine Color Yellow POC Urine Clarity Clear POC Urine pH 7.0 POC Ur Specif [place] 1.020 POC Urine Protein Negative (Negative) POC Ur Glucose (UA) Negative (Negative) POC Urine Ketones Negative (Negative) POC Urine Blood Negative (Negative) POC Urine Nitrite Negative (Negative) POC Urine Bilirubin Negative (Negative) POC Urine Urobilinogen 0.2 POC U Leukocyte Esteras Negative (Negative) reviewed ECG Data EKG #1: Attestation: I personally reviewed and interpreted this ECG as follows: ECG completion date: 03/25/25 ECG completion time: 13:16 Prior ECG tracings: not available for review Interpretation: sinus rhythm rate 68 bpm, [place] 167ms, QRS 83ms, QT 352ms EKG Interpretation: normal rate and sinus rhythm Critical Care Time Critical Care Time Critical Care Time: No Discharge Plan Discharge Clinical Impression: Near syncope Patient Disposition: Home Condition: Stable Instructions: Antibiotic Form, Near Syncope (ED) Additional Instructions: Increase fluids especially juices and water Tylenol or ibuprofen for any fever pain package instruction heat to the face 20-30 minutes 4-6 times a day for pain Monitor blood pressure daily Avoid sudden movements, change positions slowly Follow-up with PCP for further evaluation If your symptoms persist, change or worsen significantly before you can contact your personal physician then please, without delay, go to the emergency department for further evaluation. Follow-up with PCP in 7-10 days or sooner if needed Follow up with PCP soon in regards to your blood pressure which is elevated above threshold for referral. Blood pressure above 120/80 may indicate pre-hypertension. Minimal systolic elevation 129/68 Patient Language: Danish Prescriptions: No Action No Home Medications Follow-up/Referrals: PHYSICIAN,TALENT DEVELOPMENT MANAGER [Primary Care Provider, Internal Medicine] Time of Disposition: 13:20 Quality [place] Coma Scale Eyes: Open Verbal: Oriented and Alert Motor: Follows Commands Gt Coma Total Score: 15
[2025-03-25 12:52] LABS: EDUAAPPEAR Clear; EDUABILI Negative (Negative); EDUABLOOD Negative (Negative); EDUACOLOR1 Yellow; EDUAGLUCOSE Negative (Negative); EDUAKETONE Negative (Negative); EDUALEUKO Negative (Negative); EDUANITRATE Negative (Negative); EDUAPH 7.0; EDUAPROTEIN Negative (Negative); EDUASPGRAVITY 1.020; EDUAUROBILI 0.2
--- NOTE | 2025-03-25 13:16 | ECG_ITS ---
Test Date: 2025-03-25 13:16:18 Measurements Intervals [place] Rate: 68 P: 25 SD: 167 QRS: 48 QRSD: 83 T: 42 QT: 362 QTc: 387 Interpretive Statements SINUS RHYTHM BASELINE ARTIFACT- I, II, III, AVR, AVL, AVF NORMAL ECG No previous ECG available for comparison Electronically Signed On 03-25-2025 13:54:29 CDT by Willi Lang D.O.
== END 2025-03-25 13:27 | disposition home or self-care (01) ==
PROVIDERS: Emergency Provider Registered Nurse
DX: R55 Syncope and collapse (principal)
CPT/HCPCS: 81003; 82948; 93005; 99213; G0463